=== PATIENT | female | born 1945 | race Caucasian/White ===

== ENCOUNTER 2019-04-22 14:47 | Inpatient (IN) | payer OTHER ==
[~2019-04-22] VITALS: Ht 167.6 cm; Wt 78.2 kg
[2019-04-22] MEDS ORDERED: ASPirin 81 mg TAB PO ONE (15:00)
[2019-04-22 15:48] LABS: Basophils # (auto) 0.1 10 ^3/uL (0-0.2); Eosinophils # (auto) 0.1 10 ^3/uL (0-0.8); Hemoglobin 12.2 g/dL (12.2-16.2); Mean Corpuscular Hemoglobin 26.4 pg (28.0-32.0); Red Blood Cells 4.63 10^6/uL (4.0-5.20)
[2019-04-22 15:50] LABS: Basophils % (auto) 1.2 % (0.0-2.0); Eosinophils % (auto) 1.5 % (0.0-7.0); Hematocrit 37.2 % (36.0-46.0); Lymphocytes # (auto) 1.4 10 ^3/uL (0.4-5.4); Lymphocytes % (auto) 24.1 % (10.0-50.0); Mean Corpuscular Hgb Conc. 32.8 g/dL (32.0-36.0); Mean Corpuscular Volume 80.3 fL (80.0-100.0); Monocytes # (auto) 0.3 10 ^3/uL (0-1.3); Monocytes % (auto) 5.2 % (0.0-12.0); Neutrophils # (auto) 4.1 10 ^3/uL (1.6-8.6); Nucleated Red Blood Cells % 0.1 %; Platelet Count (auto) 224 10^3/uL (140-450); Red Cell Distribution Width 17.1 % (11.8-14.3)
[2019-04-22 15:59] LABS: Albumin 3.5 g/dL (3.4-5.0); Anion Gap 7 (5-15); BUN/Creatinine Ratio 13.3; Blood Urea Nitrogen 10 mg/dL (7-18); Calcium 8.8 mg/dL (8.5-10.1); Carbon Dioxide 25 mmol/L (21-32); Chloride 108 mmol/L (98-107); GFR African American 97 mL/min; GFR Non-African American 81 mL/min; Glucose 115 mg/dL (74-106); Sodium 140 mmol/L (136-145)
[2019-04-22 16:04] LABS: Alanine Aminotransferase 16 U/L (13-56); Alkaline Phosphatase 161 U/L (45-117); Aspartate Aminotransferase 13 U/L (15-37); Bilirubin, Total 0.4 mg/dL (0.2-1.0); Total Protein 7.5 g/dL (6.4-8.2)
[2019-04-22] MEDS ORDERED: POTASSIUM EFFERVESENT TAB 25 MEQ PO ONE (16:15)
[2019-04-22 16:35] LABS: INR 0.95 (0.9-1.15); Partial Thromboplastin Time 27.6 sec (23.64-32.05)
[2019-04-22] MEDS ORDERED: ACETAMINOPHEN 500 MG TAB PO PRN (16:45)
[2019-04-22] MEDS ORDERED: NITROGLYCERIN 0.4 MG SL TAB SL PRN (16:45)
[2019-04-22] MEDS ORDERED: LACTULOSE 20Gm/30ML SOLN PO PRN (16:45)
[2019-04-22] MEDS ORDERED: METOPROLOL TARTRATE 25 MG TAB PO ONE (16:45)
[2019-04-22] MEDS ORDERED: DEXTROSE (50%) 50ML SYRG IV PRN (16:45)
[2019-04-22] MEDS ORDERED: MORPHINE SULF INJ 2 MG/ML SYRINGE 1ML IV PRN (16:45)
[2019-04-22] MEDS ORDERED: LABETALOL HCL 5 MG/ML 4ML SYRINGE IV PRN ×2 (16:45)
[2019-04-22] MEDS: SODIUM CHLORIDE 0.9% 1,000 ML IV SCH (18:02)
[2019-04-22 18:03] LABS: Urine Bacteria NONE SEEN /hpf (None Seen); Urine Blood Negative /uL (Negative); Urine Specific Gravity 1.004 (1.001-1.035); Urine WBC 1 /hpf (0 - 5)
[2019-04-22] MEDS: PROMETHAZINE HCL 25 MG/ML 1ML IV PRN (18:03)
[2019-04-22 18:22] LABS: Alcohol, Urine < 3.0 mg/dL (0-5); Amphetamine Screen, Urine NEGATIVE (NEGATIVE); Barbiturate Scree,Urine NEGATIVE (NEGATIVE); Benzodiazephine Screen, Urine NEGATIVE (NEGATIVE); Cannabinoid Screen, Urine POSITIVE (NEGATIVE); Cocaine Screen, Urine NEGATIVE (NEGATIVE); Opiate Scree,Urine NEGATIVE (NEGATIVE); Phencyclidine Screen, Urine NEGATIVE (NEGATIVE)
[2019-04-22 18:22] LABS: CRP High Sensitivity 0.16 mg/dL (< 0.3)
[2019-04-22] MEDS ORDERED: clonazePAM 0.5 MG TAB PO ONE (21:15)
[2019-04-22 22:00] VITALS: BP 167/73
[2019-04-22] MEDS: InsuLIN REG 1unit/0.01ml Soln (100units/ml) SC SCH (22:00)
[2019-04-22] MEDS ORDERED: METOPROLOL TARTRATE 25 MG TAB PO SCH (22:00)
[2019-04-22] MEDS: ACCU-CHEK COMFORT CURVE STRIP VI SCH (22:00)
[2019-04-22 22:17] VITALS: BP 167/73
[2019-04-22] MEDS ORDERED: PRIM50TA29 PO (22:33)
[2019-04-22] MEDS ORDERED: ATE50T PO (22:33)
[2019-04-22] MEDS ORDERED: LOVA40TA72 PO (22:33)
[2019-04-22] MEDS ORDERED: CLOP75TA28 PO (22:33)
[2019-04-22] MEDS ORDERED: METF-370 PO (22:33)
[2019-04-22] MEDS ORDERED: ASPI-231 PO (22:33)
[2019-04-22] MEDS: TEMAZEPAM 15 MG CAP PO PRN (22:53)
[2019-04-22] MEDS: ATORVASTATIN 20 MG TAB PO SCH (22:54)
[2019-04-23 05:00] VITALS: BP 161/82
[2019-04-23 06:10] LABS: Cholesterol 214 mg/dL (< 200)
[2019-04-23 06:12] LABS: HDL Cholesterol 119 mg/dL (40-59); LDL Cholesterol 77 mg/dL (< 100); Triglycerides 126 mg/dL (< 150)
[2019-04-23] MEDS: SODIUM CHLORIDE 0.9% 1,000 ML IV SCH (07:00)
[2019-04-23] MEDS ORDERED: LABETALOL HCL 5 MG/ML ML 20ML VIAL IV PRN (07:00)
[2019-04-23] MEDS: ACCU-CHEK COMFORT CURVE STRIP VI SCH ×4 (07:00→23:20)
[2019-04-23] MEDS: InsuLIN REG 1unit/0.01ml Soln (100units/ml) SC SCH ×4 (07:02→22:00)
[2019-04-23] MEDS: traMADol HCL 50 MG TAB PO PRN ×2 (08:51→19:29)
[2019-04-23] MEDS: PROMETHAZINE HCL 25 MG/ML 1ML IV PRN (08:52)
[2019-04-23 09:00] VITALS: BP_SYST 160; BP_SYST 161; BP_DIAS 76; BP_DIAS 77
[2019-04-23] MEDS: LABETALOL HCL 5 MG/ML ML 20ML VIAL IV PRN ×3 (09:20→17:02)
[2019-04-23 09:53] LABS: BUN/Creatinine Ratio 12.3; Calcium 8.3 mg/dL (8.5-10.1); Magnesium 2.3 mg/dL (1.6-2.6); Potassium 3.3 mmol/L (3.5-5.1)
[2019-04-23] MEDS ORDERED: ENALAPRIL MALEATE 10 MG TAB PO SCH (10:00)
[2019-04-23] MEDS: ASPirin 81 mg TAB PO SCH (10:36)
[2019-04-23] MEDS: ENOXAPARIN SOD 40 MG/0.4 ML SYRINGE SC SCH (10:36)
[2019-04-23] MEDS: ENALAPRIL MALEATE 10 MG TAB PO SCH (10:37)
[2019-04-23] MEDS: METOPROLOL TARTRATE 50 MG TAB PO SCH ×2 (10:38→22:00)
[2019-04-23] MEDS: NITROGLYCERIN 0.2MG/HR TOPICAL PATCH TD SCH (10:45)
[2019-04-23 13:00] VITALS: BP 161/76
[2019-04-23] MEDS ORDERED: POTASSIUM CHL 20 Meq TABLET PO ONE (14:00)
[2019-04-23] MEDS: clonazePAM 0.5 MG TAB PO PRN (14:01)
[2019-04-23] MEDS ORDERED: amLODIPine BESYLATE 5 MG TAB PO ONE (16:00)
[2019-04-23 17:00] VITALS: BP 152/82
[2019-04-23] MEDS ORDERED: cloNIDine HCL 0.1 MG TAB PO ONE (19:00)
[2019-04-23 22:00] VITALS: BP 128/68
[2019-04-23] MEDS: ATORVASTATIN 20 MG TAB PO SCH (23:19)
[2019-04-24] VITALS (7 sets, daily range): BP systolic 122–168; BP diastolic 57–84
[2019-04-24 06:41] LABS: Calcium 8.6 mg/dL (8.5-10.1); Potassium 3.5 mmol/L (3.5-5.1)
[2019-04-24 06:44] LABS: BUN/Creatinine Ratio 14.5
[2019-04-24] MEDS: ACCU-CHEK COMFORT CURVE STRIP VI SCH ×4 (06:45→22:13)
[2019-04-24] MEDS: InsuLIN REG 1unit/0.01ml Soln (100units/ml) SC SCH ×4 (06:46→22:00)
[2019-04-24] MEDS: clonazePAM 0.5 MG TAB PO PRN ×2 (08:27→15:44)
[2019-04-24] MEDS: ENOXAPARIN SOD 40 MG/0.4 ML SYRINGE SC SCH (09:56)
[2019-04-24] MEDS: NITROGLYCERIN 0.2MG/HR TOPICAL PATCH TD SCH (09:56)
[2019-04-24] MEDS: METOPROLOL TARTRATE 50 MG TAB PO SCH ×2 (09:57→22:13)
[2019-04-24] MEDS: ASPirin 81 mg TAB PO SCH (09:57)
[2019-04-24] MEDS: ENALAPRIL MALEATE 10 MG TAB PO SCH (09:58)
[2019-04-24] MEDS ORDERED: amLODIPine BESYLATE 5 MG TAB PO SCH (10:00)
[2019-04-24] MEDS: PROMETHAZINE HCL 25 MG/ML 1ML IV PRN (10:57)
[2019-04-24] MEDS: LABETALOL HCL 5 MG/ML ML 20ML VIAL IV PRN (11:11)
[2019-04-24] MEDS ORDERED: cloNIDine HCL 0.1 MG TAB PO PRN (11:45)
[2019-04-24] MEDS: traMADol HCL 50 MG TAB PO PRN ×2 (12:41→20:41)
[2019-04-24] MEDS ORDERED: AMLO10CA33 PO (14:33)
[2019-04-24] MEDS ORDERED: CLON1TAB10 PO (14:33)
[2019-04-24] MEDS ORDERED: OME20T PO (14:33)
[2019-04-24] MEDS: ATORVASTATIN 20 MG TAB PO SCH (22:12)
[2019-04-25 05:00] VITALS: BP 139/66
[2019-04-25] MEDS: InsuLIN REG 1unit/0.01ml Soln (100units/ml) SC SCH ×4 (06:18→22:00)
[2019-04-25] MEDS: ACCU-CHEK COMFORT CURVE STRIP VI SCH ×4 (06:18→22:52)
[2019-04-25] MEDS ORDERED: ADENOSINE 66 MG in GIVE UN-DILUTED 0 ML IV STA (08:35)
[2019-04-25 09:00] VITALS: BP 162/78
[2019-04-25 09:35] VITALS: BP 165/75
[2019-04-25] MEDS: NITROGLYCERIN 0.2MG/HR TOPICAL PATCH TD SCH (10:00)
[2019-04-25] MEDS: clonazePAM 0.5 MG TAB PO PRN ×2 (10:41→18:58)
[2019-04-25] MEDS: ASPirin 81 mg TAB PO SCH (10:49)
[2019-04-25] MEDS: METOPROLOL TARTRATE 50 MG TAB PO SCH ×2 (10:49→22:51)
[2019-04-25] MEDS: NIFEdipine ER 30 MG TAB PO SCH (10:50)
[2019-04-25] MEDS: PANTOPRAZOLE 40 MG TAB PO SCH (10:50)
[2019-04-25] MEDS: ENALAPRIL MALEATE 10 MG TAB PO SCH (10:51)
[2019-04-25] MEDS: ENOXAPARIN SOD 40 MG/0.4 ML SYRINGE SC SCH (10:53)
[2019-04-25 13:00] VITALS: BP 154/61
[2019-04-25 17:00] VITALS: BP 137/73
[2019-04-25 22:00] VITALS: BP 138/77
[2019-04-25] MEDS: traMADol HCL 50 MG TAB PO PRN (22:16)
[2019-04-25] MEDS: ATORVASTATIN 20 MG TAB PO SCH (22:51)
[2019-04-25] MEDS: TEMAZEPAM 15 MG CAP PO PRN (23:48)
[2019-04-26 05:00] VITALS: BP 135/78
[2019-04-26] MEDS: InsuLIN REG 1unit/0.01ml Soln (100units/ml) SC SCH ×4 (07:00→21:26)
[2019-04-26] MEDS: ACCU-CHEK COMFORT CURVE STRIP VI SCH ×4 (07:15→21:07)
[2019-04-26 09:00] VITALS: BP 151/72
[2019-04-26] MEDS: PANTOPRAZOLE 40 MG TAB PO SCH (09:32)
[2019-04-26] MEDS: METOPROLOL TARTRATE 50 MG TAB PO SCH ×2 (09:32→21:07)
[2019-04-26] MEDS: ASPirin 81 mg TAB PO SCH (09:32)
[2019-04-26] MEDS: NIFEdipine ER 30 MG TAB PO SCH (09:32)
[2019-04-26] MEDS: ENALAPRIL MALEATE 10 MG TAB PO SCH (09:33)
[2019-04-26] MEDS: NITROGLYCERIN 0.2MG/HR TOPICAL PATCH TD SCH (09:34)
[2019-04-26] MEDS: ENOXAPARIN SOD 40 MG/0.4 ML SYRINGE SC SCH (09:34)
[2019-04-26] MEDS: clonazePAM 0.5 MG TAB PO PRN ×2 (09:50→19:53)
[2019-04-26 13:00] VITALS: BP 142/75
[2019-04-26] MEDS: traMADol HCL 50 MG TAB PO PRN ×2 (14:40→21:13)
[2019-04-26 17:02] VITALS: BP 137/84
[2019-04-26] MEDS: ATORVASTATIN 20 MG TAB PO SCH (21:07)
[2019-04-26] MEDS: TEMAZEPAM 15 MG CAP PO PRN (21:13)
[2019-04-26 22:00] VITALS: BP 165/68
[2019-04-27 05:00] VITALS: BP 132/67
[2019-04-27 06:15] LABS: Basophils # (auto) 0.1 10 ^3/uL (0-0.2); Basophils % (auto) 1.2 % (0.0-2.0); Eosinophils # (auto) 0.2 10 ^3/uL (0-0.8); Eosinophils % (auto) 3.9 % (0.0-7.0); Hematocrit 37.5 % (36.0-46.0); Hemoglobin 12.2 g/dL (12.2-16.2); Lymphocytes # (auto) 1.6 10 ^3/uL (0.4-5.4); Lymphocytes % (auto) 33.9 % (10.0-50.0); Mean Corpuscular Hemoglobin 26.8 pg (28.0-32.0); Mean Corpuscular Hgb Conc. 32.6 g/dL (32.0-36.0); Mean Corpuscular Volume 82.2 fL (80.0-100.0); Monocytes # (auto) 0.3 10 ^3/uL (0-1.3); Monocytes % (auto) 6.8 % (0.0-12.0); Neutrophils # (auto) 2.6 10 ^3/uL (1.6-8.6); Neutrophils % (auto) 54.2 % (37.0-80.0); Nucleated Red Blood Cells % 0.2 %; Platelet Count (auto) 192 10^3/uL (140-450); Red Blood Cells 4.56 10^6/uL (4.0-5.20); Red Cell Distribution Width 17.9 % (11.8-14.3); White Blood Cell 4.7 10^3/uL (4.4-10.8)
[2019-04-27] MEDS: ACCU-CHEK COMFORT CURVE STRIP VI SCH ×2 (06:17→11:57)
[2019-04-27] MEDS: InsuLIN REG 1unit/0.01ml Soln (100units/ml) SC SCH ×2 (06:17→11:30)
[2019-04-27 06:34] LABS: Calcium 9.2 mg/dL (8.5-10.1); Magnesium 1.8 mg/dL (1.6-2.6); Potassium 3.8 mmol/L (3.5-5.1)
[2019-04-27 06:36] LABS: BUN/Creatinine Ratio 13.6
[2019-04-27 08:38] LABS: Folate (Folic Acid) 9.37 ng/mL (5.38-24)
[2019-04-27 09:06] VITALS: BP 137/84
[2019-04-27] MEDS: ASPirin 81 mg TAB PO SCH (09:56)
[2019-04-27] MEDS: NIFEdipine ER 30 MG TAB PO SCH (09:57)
[2019-04-27] MEDS: METOPROLOL TARTRATE 50 MG TAB PO SCH (09:57)
[2019-04-27] MEDS: ENALAPRIL MALEATE 10 MG TAB PO SCH (09:58)
[2019-04-27] MEDS: PANTOPRAZOLE 40 MG TAB PO SCH (09:58)
[2019-04-27] MEDS: ENOXAPARIN SOD 40 MG/0.4 ML SYRINGE SC SCH (09:59)
[2019-04-27] MEDS: traMADol HCL 50 MG TAB PO PRN (10:00)
[2019-04-27] MEDS: NITROGLYCERIN 0.2MG/HR TOPICAL PATCH TD SCH (10:00)
[2019-04-27] MEDS: clonazePAM 0.5 MG TAB PO PRN (10:00)
[2019-04-27] MEDS ORDERED: MAGNESIUM OXIDE 400 MG TAB PO ONE (10:45)
[2019-04-27] MEDS ORDERED: CYANOCOBALAMIN (B-12) 1000 MCG/1 ML VIAL SUBCUT ONE (10:45)
[2019-04-27 13:00] VITALS: BP 151/67
[2019-04-27 15:24] VITALS: BP 151/67
== END 2019-04-27 16:14 | disposition home or self-care (01) | DRG 305 ==
LOC: ER 14:47 → EDBD 14:47 → TELE 14:48 → TELE-WESTW 20:38
PROVIDERS: ADMIT Internal Medicine; ATTEND Internal Medicine
DX: I16.1 Hypertensive emergency (principal); J44.1 Chronic obstructive pulmonary disease with (acute) exacerbation; I16.0 Hypertensive urgency; R07.89 Other chest pain; E87.6 Hypokalemia; F41.9 Anxiety disorder, unspecified; E11.9 Type 2 diabetes mellitus without complications; I25.10 Atherosclerotic heart disease of native coronary artery without angina pectoris; E87.5 Hyperkalemia; I35.1 Nonrheumatic aortic (valve) insufficiency; Z90.49 Acquired absence of other specified parts of digestive tract; Z90.710 Acquired absence of both cervix and uterus
CPT/HCPCS: 36415; 70450; 71045; 78452; 80048; 80053; 80061; 80307; 81001; 82550; 82607; 82746; 82962; 83036; 83735; 84443; 84484; 85025; 85379; 85610; 85652; 85730; 86141; 93005; 93017; 93306; 93975; 96374; G0378; J0153; J1815

== ENCOUNTER → 2019-06-03 | Emergency (ER) | payer OTHER ==
[~2019-06-03] VITALS: Ht 167.6 cm; Wt 81.6 kg
[~2019-06-03] MED LIST: ACETAMINOPHEN 500 MG TAB PO ONE; AMLO10CA33 PO; ASPI-231 PO; ATE50T PO; CLON1TAB10 PO; CLOP75TA28 PO; IBUPROFEN 800 MG TAB PO ONE; IOHEXOL 350 MG/ML 100ML IJ ONE; LOVA40TA72 PO; METF-370 PO; OME20T PO; PRIM50TA29 PO; cloNIDine HCL 0.1 MG TAB PO ONE; clonazePAM 0.5 MG TAB PO ONE
[2019-06-03 12:23] LABS: Urine WBC None Seen /hpf (0 - 5)
[2019-06-03 12:37] LABS: Urine Bacteria NONE SEEN /hpf (None Seen); Urine Blood Negative /uL (Negative); Urine Mucus FEW (None Seen); Urine Specific Gravity 1.001 (1.001-1.035)
[2019-06-03 13:37] LABS: Basophils # (auto) 0.1 10 ^3/uL (0-0.2); Basophils % (auto) 1.3 % (0.0-2.0); Eosinophils # (auto) 0.1 10 ^3/uL (0-0.8); Eosinophils % (auto) 2.5 % (0.0-7.0); Hematocrit 34.3 % (36.0-46.0); Hemoglobin 11.3 g/dL (12.2-16.2); Lymphocytes # (auto) 1.3 10 ^3/uL (0.4-5.4); Mean Corpuscular Hemoglobin 27.2 pg (28.0-32.0); Mean Corpuscular Hgb Conc. 32.9 g/dL (32.0-36.0); Mean Corpuscular Volume 82.7 fL (80.0-100.0); Monocytes # (auto) 0.3 10 ^3/uL (0-1.3); Monocytes % (auto) 5.5 % (0.0-12.0); Neutrophils # (auto) 3.6 10 ^3/uL (1.6-8.6); Neutrophils % (auto) 66.7 % (37.0-80.0); Nucleated Red Blood Cells % 0.1 %; Platelet Count (auto) 231 10^3/uL (140-450); Red Blood Cells 4.15 10^6/uL (4.0-5.20); Red Cell Distribution Width 16.4 % (11.8-14.3); White Blood Cell 5.4 10^3/uL (4.4-10.8)
[2019-06-03 13:55] LABS: INR 0.97 (0.9-1.15); Partial Thromboplastin Time 26.9 sec (23.64-32.05)
[2019-06-03 13:56] LABS: Albumin 3.1 g/dL (3.4-5.0); Anion Gap 7 (5-15); BUN/Creatinine Ratio 16.2; Blood Urea Nitrogen 12 mg/dL (7-18); Calcium 8.6 mg/dL (8.5-10.1); Carbon Dioxide 25 mmol/L (21-32); Chloride 110 mmol/L (98-107); GFR African American 99 mL/min; GFR Non-African American 82 mL/min; Glucose 119 mg/dL (74-106); Potassium 3.8 mmol/L (3.5-5.1); Sodium 142 mmol/L (136-145)
[2019-06-03 14:01] LABS: Alanine Aminotransferase 16 U/L (13-56); Alkaline Phosphatase 159 U/L (45-117); Aspartate Aminotransferase 10 U/L (15-37); Bilirubin, Total 0.3 mg/dL (0.2-1.0); Total Protein 6.7 g/dL (6.4-8.2)
[2019-06-03 15:46] VITALS: BP 120/61
== END | disposition home or self-care (01) ==
LOC: EDUNIT# 11:17 → EDBD 11:33 → ER 11:33
DX: I16.0 Hypertensive urgency (principal); F41.9 Anxiety disorder, unspecified; R79.89 Other specified abnormal findings of blood chemistry; I25.10 Atherosclerotic heart disease of native coronary artery without angina pectoris; J44.9 Chronic obstructive pulmonary disease, unspecified; E11.9 Type 2 diabetes mellitus without complications; E78.5 Hyperlipidemia, unspecified; I10 Essential (primary) hypertension
CPT/HCPCS: 36415; 70450; 71045; 71275; 80053; 81001; 83735; 83880; 84443; 84484; 85025; 85379; 85610; 85730; 93005; 99285; Q9967

== ENCOUNTER 2019-07-02 16:33 | Inpatient (IN) | payer OTHER ==
[~2019-07-02] VITALS: Ht 167.6 cm; Wt 86.1 kg
[~2019-07-02 16:33] MED LIST changes: -ACETAMINOPHEN 500 MG TAB PO ONE; -IBUPROFEN 800 MG TAB PO ONE; -IOHEXOL 350 MG/ML 100ML IJ ONE; -cloNIDine HCL 0.1 MG TAB PO ONE; -clonazePAM 0.5 MG TAB PO ONE
[2019-07-02 17:19] LABS: Basophils # (auto) 0.1 10 ^3/uL (0-0.2); Basophils % (auto) 0.8 % (0.0-2.0); Eosinophils # (auto) 0.1 10 ^3/uL (0-0.8); Eosinophils % (auto) 1.1 % (0.0-7.0); Hematocrit 38.4 % (36.0-46.0); Hemoglobin 12.7 g/dL (12.2-16.2); Lymphocytes # (auto) 1.5 10 ^3/uL (0.4-5.4); Lymphocytes % (auto) 21.8 % (10.0-50.0); Mean Corpuscular Hemoglobin 27.6 pg (28.0-32.0); Mean Corpuscular Hgb Conc. 33.1 g/dL (32.0-36.0); Mean Corpuscular Volume 83.4 fL (80.0-100.0); Monocytes # (auto) 0.4 10 ^3/uL (0-1.3); Monocytes % (auto) 5.6 % (0.0-12.0); Neutrophils # (auto) 4.9 10 ^3/uL (1.6-8.6); Neutrophils % (auto) 70.7 % (37.0-80.0); Nucleated Red Blood Cells % 0.1 %; Platelet Count (auto) 207 10^3/uL (140-450); Red Cell Distribution Width 15.5 % (11.8-14.3)
[2019-07-02 17:29] LABS: Alanine Aminotransferase 18 U/L (13-56); Albumin 3.5 g/dL (3.4-5.0); Anion Gap 7 (5-15); Aspartate Aminotransferase 14 U/L (15-37); BUN/Creatinine Ratio 11.6; Blood Urea Nitrogen 11 mg/dL (7-18); Calcium 9.2 mg/dL (8.5-10.1); Carbon Dioxide 26 mmol/L (21-32); Chloride 106 mmol/L (98-107); GFR African American 74 mL/min; GFR Non-African American 61 mL/min; Glucose 183 mg/dL (74-106); Magnesium 1.7 mg/dL (1.6-2.6); Potassium 3.6 mmol/L (3.5-5.1); Sodium 139 mmol/L (136-145)
[2019-07-02 17:35] LABS: INR 0.97 (0.9-1.15); Partial Thromboplastin Time 26.6 sec (23.64-32.05)
[2019-07-02 17:36] LABS: Alkaline Phosphatase 123 U/L (45-117); Bilirubin, Total 0.4 mg/dL (0.2-1.0); Total Protein 7.6 g/dL (6.4-8.2)
[2019-07-02] MEDS ORDERED: ACETAMINOPHEN 325 MG TAB PO ONE ×2 (17:45→22:15)
[2019-07-02] MEDS ORDERED: cloNIDine HCL 0.1 MG TAB ONE (18:50)
[2019-07-02] MEDS ORDERED: cloNIDine HCL 0.1 MG TAB PO ONE (19:00)
[2019-07-02] MEDS ORDERED: SODIUM CHLORIDE 0.9% 1,000 ML IV SCH (23:07)
[2019-07-02] MEDS ORDERED: DOCUSATE SOD 100 MG CAP PO PRN (23:15)
[2019-07-02] MEDS ORDERED: MORPHINE SULF INJ 2 MG/ML SYRINGE 1ML IV PRN (23:15)
[2019-07-02] MEDS ORDERED: DEXTROSE (50%) 50ML SYRG IV PRN (23:15)
[2019-07-02] MEDS ORDERED: HYDROcodone-ACET 5/325MG TAB PO PRN (23:15)
[2019-07-02] MEDS ORDERED: ACETAMINOPHEN 325 MG TAB PO PRN (23:15)
[2019-07-02] MEDS ORDERED: ALBUTEROL SULF 2.5 MG/0.5ML(0.5%) NEB SOLN NEB PRN (23:15)
[2019-07-02] MEDS ORDERED: ONDANSETRON HCL 4 MG/2 ML VIAL IV PRN (23:15)
[2019-07-02] MEDS ORDERED: IPRATROPIUM BROM 0.5 MG/2.5ML INH SOL NEB PRN (23:15)
[2019-07-02] MEDS ORDERED: ACETAMINOPHEN 500 MG TAB PO PRN (23:15)
[2019-07-03] MEDS: SODIUM CHLORIDE 0.9% 1,000 ML IV SCH ×2 (00:30→09:09)
[2019-07-03] MEDS: DOXYCYCLINE 100 MG TAB/CAP PO SCH ×3 (00:30→21:13)
[2019-07-03] MEDS: InsuLIN REG 1unit/0.01ml Soln (100units/ml) SC SCH ×7 (01:00→23:43)
--- NOTE | 2019-07-03 01:00 | NUR ---
OPENING NOTE RECEIVED PATIENT FROM ER. NO SBAR OR REPORT RECEIVED. CARMINE'S BP AT THIS TIME IN THE 180S. NO PRIOR BP RECORDED PRIOR TO TRANSFER. WILL MEDICATE WITH PRN AT THIS TIME. PATIENT SHOWING NO SIGN OF DISTRESS, SHORTNESS OF BREATH, BUT PATIENT DOES STATE PAIN FROM HEADACHE. PATIENT WILL BE MEDICATED WHEN AVAILABLE. PATIENT EDUCATED ON PLAN OF CARE FOR THE NIGHT AND PATIENT VERBALIZED UNDERSTANDING. WILL CONTINUE TO MONITOR.
--- NOTE | 2019-07-03 01:10 | NUR ---
PATIENT COMPLAINING OF HEADACHE AT 09/25. PATIENT GIVEN NORCO AT THIS TIME PER PATIENT'S REQUEST. WILL CONTINUE TO MONITOR.
[2019-07-03 01:13] VITALS: BP 181/162
[2019-07-03] MEDS: cloNIDine HCL 0.1 MG TAB PO PRN ×2 (01:16→06:05)
[2019-07-03] MEDS: ACCU-CHEK COMFORT CURVE STRIP VI SCH ×7 (04:00→23:43)
[2019-07-03] MEDS: clonazePAM 0.5 MG TAB PO SCH ×4 (05:38→21:12)
[2019-07-03 05:39] LABS: Basophils # (auto) 0 10 ^3/uL (0-0.2); Basophils % (auto) 0.7 % (0.0-2.0); Eosinophils # (auto) 0.1 10 ^3/uL (0-0.8); Eosinophils % (auto) 1.7 % (0.0-7.0); Hematocrit 37.6 % (36.0-46.0); Hemoglobin 12.2 g/dL (12.2-16.2); Lymphocytes # (auto) 1.7 10 ^3/uL (0.4-5.4); Lymphocytes % (auto) 26.9 % (10.0-50.0); Mean Corpuscular Hemoglobin 27.1 pg (28.0-32.0); Mean Corpuscular Hgb Conc. 32.5 g/dL (32.0-36.0); Mean Corpuscular Volume 83.4 fL (80.0-100.0); Monocytes # (auto) 0.3 10 ^3/uL (0-1.3); Monocytes % (auto) 5.1 % (0.0-12.0); Neutrophils % (auto) 65.6 % (37.0-80.0); Nucleated Red Blood Cells % 0.1 %; Platelet Count (auto) 186 10^3/uL (140-450); Red Blood Cells 4.51 10^6/uL (4.0-5.20); Red Cell Distribution Width 15.4 % (11.8-14.3); White Blood Cell 6.1 10^3/uL (4.4-10.8)
[2019-07-03 06:00] VITALS: BP 178/81
[2019-07-03] MEDS ORDERED: ALBUTEROL SULF HFA 90MCG INH 200DOSE IN SCH ×2 (06:00)
--- NOTE | 2019-07-03 06:06 | NUR ---
HOSPITALIST PAGED PATIENT'S BP ELEVATED AGAIN AT 178/81. CATAPRES SCHEDULED TID. INFORMED HOSPITALIST. ORDERS FOR .1 CATAPRES NOW AND SWITCH ORDER TO .2 TID. ORDERS CARRIED OUT AT THIS TIME.
[2019-07-03 06:08] LABS: Albumin 3.2 g/dL (3.4-5.0); Potassium 3.4 mmol/L (3.5-5.1)
[2019-07-03 06:15] LABS: BUN/Creatinine Ratio 13.3; Bilirubin, Total 0.5 mg/dL (0.2-1.0); Calcium 8.6 mg/dL (8.5-10.1); Total Protein 6.9 g/dL (6.4-8.2)
[2019-07-03] MEDS ORDERED: cloNIDine HCL 0.1 MG TAB PO PRN (07:00)
--- NOTE | 2019-07-03 07:45 | NUR ---
OPENING SHIFT NOTE: PATIENT RESTING IN BED. RESPIRATIONS EVEN AND UNLABORED. PATIENT SLEEPING, BUT EASILY AROUSABLE. A&OX4. EXTREMITES WARM TO TOUCH. DENIES ANY DIZZINESS, SOB, OR CHEST PAIN AT THIS TIME. PATIENT SAT-UP AND ASPIRATION AND FALL PRECAUTIONS IN PLACE. BED IN LOWEST LOCKED POSITION WITH CALL LIGHT WITHIN REACH. WILL CONTINUE CARE.
--- NOTE | 2019-07-03 07:53 | NUR ---
REGARDING SINUS BRADYCARDIA: paged distribution a class lineman hospitalist for new onset SINUS JEFF low 40's.
[2019-07-03] MEDS ORDERED: hydrALAZINE HCL 20 MG/ML VL IV PRN (08:00)
[2019-07-03] MEDS ORDERED: OMEPRAZOLE 20MG/10ML ORAL SUSP PO SCH (08:00)
--- NOTE | 2019-07-03 08:03 | NUR ---
SPOKE TO Christin EDUARDO. INFORMED OF PATIENT STATUS. INCLUDING CURRENT VITALS. RECEIVED NEW ORDERS. WILL FOLLOW THROUGH.
[2019-07-03] MEDS ORDERED: ATORVASTATIN 20 MG TAB PO ONE (08:15)
[2019-07-03 09:00] VITALS: BP 138/64
[2019-07-03] MEDS ORDERED: ASCORBIC ACID 1,000 MG TAB PO SCH (10:00)
[2019-07-03] MEDS ORDERED: CHOLECALCIFEROL (VITD3) 1,000UNIT=25mCg TAB PO SCH (10:00)
[2019-07-03] MEDS ORDERED: amLODIPine BESYLATE 5 MG TAB PO SCH (10:00)
[2019-07-03] MEDS ORDERED: ZINC SULFATE 220mg CAP or TAB PO SCH (10:00)
[2019-07-03] MEDS ORDERED: ATORVASTATIN 20 MG TAB PO SCH (10:00)
[2019-07-03] MEDS ORDERED: ATENOLOL 50 MG TAB PO SCH (10:00)
[2019-07-03] MEDS: ASPirin-EC 81 mg tab PO SCH (10:11)
[2019-07-03] MEDS: CLOPIDOGREL BISULFATE 75 MG TAB PO SCH (10:11)
[2019-07-03] MEDS: ENOXAPARIN SOD 40 MG/0.4 ML SYRINGE SC SCH (10:12)
--- NOTE | 2019-07-03 10:35 | NUR ---
REGARDING SEIZURE MEDICATION: INFORMED Christin SUNSHINE OF PATIENT STATUS INFORMED PATIENT HAS HISTORY OF SEIZURES AND TAKES PRIMODINE 50MG PO DAILY. NO NEW ORDERS RECEIVED.
--- NOTE | 2019-07-03 10:40 | NUR ---
GERARDO SANDERSON REGARDING DECREASED HEART RATE. AWAITING CALL BACK.
--- NOTE | 2019-07-03 11:11 | NUR ---
Christin CALLOWAY AT BEDSIDE. INFORMED OF PATIENT STATUS INCLUDING VITAL SIGNS. NEW ORDERS RECEIVED. SEE EMR.
--- NOTE | 2019-07-03 11:46 | NUR ---
PATIENT TRANSFERRED TO ROOM 218A. PATIENT IN NO S/S OF DISTRESS NOTED AT THIS TIME. TELE MONITOR IN PLACE. TRANSFERRED [facility] ALL BELONGINGS. REPORT GIVEN TO JOSH HERMOSILLO.
--- NOTE | 2019-07-03 12:08 | NUR ---
Pt transfered to floor from COVID unit, no distress noted. Pt reports no pain at this time. P oriented to unit and call light, seizure precautions in place. side rails up x2, bed rails padded, bed in lowest locked position. Vitals: 98.5, HR 48, RR 18, 02 94 % on RA, BP 149/67. Will continue to monitor q 1 hr and PRN.
[2019-07-03 12:30] VITALS: BP 149/67
--- NOTE | 2019-07-03 13:05 | NUR ---
DR LAU CAME AND SAW PATIENT, NOTIFIED HIM OF PATIENT 11/25 PAIN IN LEFT LEG, AWARE, NEW ORDERS FOR ULTRASOUND OF LEG AND TORADOL. Addendum: 07/03/19 at 1307 by DHAVAL CLARK RN WRONG PATIENT
[2019-07-03] MEDS ORDERED: amLODIPine BESYLATE 5 MG TAB PO ONE (15:45)
[2019-07-03] MEDS ORDERED: BENAZEPRIL HCL 10 MG TAB PO ONE (15:45)
[2019-07-03 17:00] VITALS: BP 141/70
--- NOTE | 2019-07-03 19:30 | NUR ---
opening note pt is A&Ox4. respirations are even and non labored on room air. pt denies pain or discomfort at this time. POC discussed. bed in low locked position, call light within reach.
[2019-07-03] MEDS ORDERED: PRAMIPEXOLE DIHYDROCHLORIDE MO 0.25 MG TAB PO SCH (21:00)
[2019-07-03 22:00] VITALS: BP 149/73
[2019-07-03 23:19] LABS: % Iron Saturation 14.1 % (15-50)
[2019-07-04] MEDS: InsuLIN REG 1unit/0.01ml Soln (100units/ml) SC SCH ×4 (03:46→16:00)
[2019-07-04] MEDS: ACCU-CHEK COMFORT CURVE STRIP VI SCH ×4 (03:46→16:00)
[2019-07-04 05:58] VITALS: BP 162/74
[2019-07-04] MEDS: clonazePAM 0.5 MG TAB PO SCH (06:17)
[2019-07-04] MEDS ORDERED: PANTOPRAZOLE 40 MG TAB PO SCH (07:00)
--- NOTE | 2019-07-04 07:17 | NUR ---
closing note pt resting in semi fowlers with HOB at 30 degrees. no s/s of pain or discomfort at this time. respirations even and nonlabored on room air. bed in low locked position, call light within reach. Endorsed care to JOSH Vasquez.
--- NOTE | 2019-07-04 07:30 | NUR ---
Opening Shift Note Assumed care of patient, awake and alert. No S/S of distress/SOB or pain. Instructed on POC and to call for assist PRN, and patient verbalized understanding. Will continue to monitor for changes Q1hr and PRN.
[2019-07-04 09:00] VITALS: BP 160/75
[2019-07-04] MEDS: DOXYCYCLINE 100 MG TAB/CAP PO SCH (09:13)
[2019-07-04] MEDS: CLOPIDOGREL BISULFATE 75 MG TAB PO SCH (09:13)
[2019-07-04] MEDS: ASPirin-EC 81 mg tab PO SCH (09:14)
[2019-07-04] MEDS: ENOXAPARIN SOD 40 MG/0.4 ML SYRINGE SC SCH (09:15)
[2019-07-04] MEDS ORDERED: amLODIPine BESYLATE 5 MG TAB PO SCH (10:00)
[2019-07-04] MEDS ORDERED: BENAZEPRIL HCL 10 MG TAB PO SCH (10:00)
[2019-07-04 13:00] VITALS: BP 159/75
[2019-07-04] MEDS ORDERED: CLON1TAB10 PO (14:32)
[2019-07-04] MEDS ORDERED: PRAM0.252 PO (14:32)
--- NOTE | 2019-07-04 18:05 | NUR ---
Patient discharged; taken to vehicle via wheelchair, along with all personal belongings, no distress noted at time of departure.
[2019-07-04] MEDS ORDERED: clonazePAM 0.5 MG TAB PO PRN (19:00)
[2019-07-04] MEDS ORDERED: ATORVASTATIN 20 MG TAB PO SCH (22:00)
== END 2019-07-04 17:56 | disposition home or self-care (01) | DRG 77 ==
LOC: EDUNIT# 16:33 → ER 16:33 → EDBD 16:33 → TELE 16:34 → TELE-EAST 07-03 01:23 → TELE-CENTR 07-03 11:47
PROVIDERS: ADMIT Hospitalist; ATTEND Internal Medicine Nephrology
DX: I67.4 Hypertensive encephalopathy (principal); I63.81 Other cerebral infarction due to occlusion or stenosis of small artery; I16.1 Hypertensive emergency; I35.1 Nonrheumatic aortic (valve) insufficiency; E87.6 Hypokalemia; I10 Essential (primary) hypertension; R51 Headache; R43.8 Other disturbances of smell and taste; R00.1 Bradycardia, unspecified; J44.9 Chronic obstructive pulmonary disease, unspecified; E78.5 Hyperlipidemia, unspecified; I25.10 Atherosclerotic heart disease of native coronary artery without angina pectoris; F41.9 Anxiety disorder, unspecified; Z03.818 Encounter for observation for suspected exposure to other biological agents ruled out; G25.81 Restless legs syndrome; E11.65 Type 2 diabetes mellitus with hyperglycemia; F17.200 Nicotine dependence, unspecified, uncomplicated; Z80.0 Family history of malignant neoplasm of digestive organs; Z90.710 Acquired absence of both cervix and uterus; Z95.5 Presence of coronary angioplasty implant and graft; Z82.5 Family history of asthma and other chronic lower respiratory diseases; Z82.49 Family history of ischemic heart disease and other diseases of the circulatory system
CPT/HCPCS: 36415; 70450; 71045; 80053; 80061; 82728; 82962; 83036; 83540; 83550; 83605; 83735; 84436; 84443; 84484; 85025; 85610; 85652; 85730; 87040; 87070; 87804; 87880; 93005; G0378; J1815

== ENCOUNTER 2019-11-19 20:55 | Emergency (ER) | payer OTHER, MEDICAID ==
[~2019-11-19] VITALS: Ht 167.6 cm; Wt 82.6 kg
[~2019-11-19 20:55] MED LIST changes: -ATE50T PO; -CLON1TAB10 PO; +PRAM0.252 PO
[2019-11-19 21:08] VITALS: BP 166/60
[2019-11-19 22:15] LABS: Urine Bacteria FEW /hpf (None Seen); Urine Blood Negative /uL (Negative); Urine Specific Gravity 1.006 (1.001-1.035); Urine WBC 2 /hpf (0 - 5)
[2019-11-19 22:28] LABS: Basophils # (auto) 0.1 10 ^3/uL (0-0.2); Basophils % (auto) 0.7 % (0.0-2.0); Eosinophils # (auto) 0.2 10 ^3/uL (0-0.8); Eosinophils % (auto) 2.8 % (0.0-7.0); Hematocrit 35.4 % (36.0-46.0); Hemoglobin 11.6 g/dL (12.2-16.2); Lymphocytes # (auto) 2.3 10 ^3/uL (0.4-5.4); Lymphocytes % (auto) 25.9 % (10.0-50.0); Mean Corpuscular Hemoglobin 28.6 pg (28.0-32.0); Mean Corpuscular Hgb Conc. 32.8 g/dL (32.0-36.0); Mean Corpuscular Volume 87.3 fL (80.0-100.0); Monocytes # (auto) 0.5 10 ^3/uL (0-1.3); Monocytes % (auto) 5.5 % (0.0-12.0); Neutrophils # (auto) 5.7 10 ^3/uL (1.6-8.6); Neutrophils % (auto) 65.1 % (37.0-80.0); Nucleated Red Blood Cells % 0.1 %; Platelet Count (auto) 265 10^3/uL (140-450); Red Blood Cells 4.06 10^6/uL (4.0-5.20); Red Cell Distribution Width 16.3 % (11.8-14.3); White Blood Cell 8.8 10^3/uL (4.4-10.8)
[2019-11-19 22:46] LABS: Albumin 3.9 g/dL (3.4-5.0); Amylase 44 U/L (25-115); Anion Gap 5 (5-15); Blood Urea Nitrogen 12 mg/dL (7-18); Calcium 9.2 mg/dL (8.5-10.1); Carbon Dioxide 26 mmol/L (21-32); Chloride 108 mmol/L (98-107); Glucose 123 mg/dL (74-106); Lipase 194 U/L (73-393); Potassium 4.1 mmol/L (3.5-5.1); Sodium 139 mmol/L (136-145)
[2019-11-19 22:52] LABS: Alanine Aminotransferase 25 U/L (13-56); Alkaline Phosphatase 123 U/L (45-117); Aspartate Aminotransferase 14 U/L (15-37); BUN/Creatinine Ratio 11.3; Bilirubin, Total 0.3 mg/dL (0.2-1.0); GFR African American 65 mL/min; GFR Non-African American 54 mL/min; Total Protein 7.5 g/dL (6.4-8.2)
[2019-11-21] MEDS ORDERED: ATEN50TA PO (19:56)
[2019-11-21] MEDS ORDERED: PROP60CA34 PO (19:56)
[2019-11-21] MEDS ORDERED: ROSU10TA16 PO (19:56)
[2019-11-21] MEDS ORDERED: MULT-927 PO (19:57)
[2019-11-21] MEDS ORDERED: B-COTAB56 PO (19:57)
== END 2019-11-20 00:45 | disposition left against medical advice (07) ==
LOC: ER 20:56
DX: R10.9 Unspecified abdominal pain (principal); Z53.21 Procedure and treatment not carried out due to patient leaving prior to being seen by health care provider
CPT/HCPCS: 36415; 80053; 81001; 82150; 83690; 84484; 85025; 93005

== ENCOUNTER 2019-11-21 10:59 | Inpatient (IN) | payer OTHER, MEDICAID ==
[~2019-11-21] VITALS: Ht 167.6 cm; Wt 91.8 kg
[2019-11-21] MEDS ORDERED: SODIUM CHLORIDE 0.9% 1,000 ML IV ONE (11:15)
[2019-11-21] MEDS ORDERED: cloNIDine HCL 0.1 MG TAB PO ONE (11:15)
[2019-11-21 11:40] LABS: Basophils # (auto) 0 10 ^3/uL (0-0.2); Basophils % (auto) 0.7 % (0.0-2.0); Eosinophils # (auto) 0.1 10 ^3/uL (0-0.8); Hematocrit 35.8 % (36.0-46.0); Hemoglobin 11.8 g/dL (12.2-16.2); Lymphocytes # (auto) 1.5 10 ^3/uL (0.4-5.4); Mean Corpuscular Hemoglobin 28.4 pg (28.0-32.0); Monocytes # (auto) 0.3 10 ^3/uL (0-1.3); Monocytes % (auto) 4.1 % (0.0-12.0); Neutrophils # (auto) 4.9 10 ^3/uL (1.6-8.6); Neutrophils % (auto) 71.2 % (37.0-80.0); Nucleated Red Blood Cells % 0.2 %; Platelet Count (auto) 275 10^3/uL (140-450); Red Blood Cells 4.16 10^6/uL (4.0-5.20); Red Cell Distribution Width 16.1 % (11.8-14.3); White Blood Cell 6.9 10^3/uL (4.4-10.8)
[2019-11-21 11:55] LABS: Albumin 3.6 g/dL (3.4-5.0); Anion Gap 5 (5-15); Blood Urea Nitrogen 13 mg/dL (7-18); Calcium 9.4 mg/dL (8.5-10.1); Carbon Dioxide 27 mmol/L (21-32); Chloride 108 mmol/L (98-107); Glucose 170 mg/dL (74-106); Lipase 163 U/L (73-393); Sodium 140 mmol/L (136-145)
[2019-11-21 12:02] LABS: Alanine Aminotransferase 19 U/L (13-56); Alkaline Phosphatase 112 U/L (45-117); Aspartate Aminotransferase 12 U/L (15-37); BUN/Creatinine Ratio 12.9; Bilirubin, Total 0.3 mg/dL (0.2-1.0); GFR African American 69 mL/min; GFR Non-African American 57 mL/min; Total Protein 7.1 g/dL (6.4-8.2)
[2019-11-21] MEDS ORDERED: ONDANSETRON HCL 4 MG/2 ML VIAL IV ONE (14:30)
[2019-11-21] MEDS ORDERED: PIPERACILLIN-TAZOB 3.375GM 100 ML IV ONE (14:30)
[2019-11-21] MEDS ORDERED: MORPHINE SULFATE 4 MG/ML SYR/VIAL IV ONE (14:30)
[2019-11-21] MEDS ORDERED: NITROGLYCERIN 0.4 MG SL TAB SL PRN (15:30)
[2019-11-21] MEDS ORDERED: DEXTROSE (50%) 50ML SYRG IV PRN (15:30)
[2019-11-21] MEDS ORDERED: MORPHINE SULF INJ 2 MG/ML SYRINGE 1ML IV PRN ×2 (15:30)
[2019-11-21] MEDS ORDERED: HYDROmorphone HCL 2 MG/ML VL IV PRN (16:00)
[2019-11-21] MEDS ORDERED: PROMETHAZINE HCL 25 MG/ML 1ML IV ONE (17:00)
[2019-11-21] MEDS: ACCU-CHEK COMFORT CURVE STRIP VI SCH ×2 (17:47→21:31)
[2019-11-21] MEDS: InsuLIN REG 1unit/0.01ml Soln (100units/ml) SC SCH ×2 (17:50→21:32)
--- NOTE | 2019-11-21 18:21 | NUR ---
Telemetry admit from ER MELANIERADHA admitted to Telemetry unit after SBAR received. Patient oriented to YVONNE MCKNIGHT, RN primary RN, unit, room, bed, and unit policies regarding patient care and visiting hours. Patient now on continuous telemetry monitoring, reading on arrival to unit is Sinus Bradycardia HR 56. Patient encouraged to call if they need something. All questions and concerns addressed, patient verbalized understanding. Physical assessment performed at this time, will endorse admission questionnaire to NOC nurse.
--- NOTE | 2019-11-21 19:25 | NUR ---
OPENING NOTE SHIFT: Assumed care of patient from Bailey MORENO, patient is ALOCx4, Currently on 1L NC with no S/S of distress or SOB noted at this time. No pain at this time. Ambulatory with assist bed alarm is on and patient is instructed to call for assist when needed. Bed in lowest position, locked, side rails x2. Call light within reach. Will continue to monitor PRN.
[2019-11-21] MEDS ORDERED: PROP60CA34 PO (19:56)
[2019-11-21] MEDS ORDERED: ATEN50TA PO (19:56)
[2019-11-21] MEDS ORDERED: ROSU10TA16 PO (19:56)
[2019-11-21] MEDS ORDERED: MULT-927 PO (19:57)
[2019-11-21] MEDS ORDERED: B-COTAB56 PO (19:57)
[2019-11-21 22:00] VITALS: BP 106/50
[2019-11-21] MEDS: MORPHINE SULFATE 4 MG/ML SYR/VIAL IV PRN (23:14)
--- NOTE | 2019-11-22 04:29 | NUR ---
BLADDER SCAN Patient complained of the need to void but not able to. Upon palpation bladder was not distended, Bladder scan showed 71ml of urine in bladder. Patient was assisted to the bathroom and was able to void. UA sent to the lab. Will continue to encourage fluids and monitor.
[2019-11-22 05:00] VITALS: BP 143/67
[2019-11-22 05:41] LABS: Urine Bacteria FEW /hpf (None Seen); Urine Blood Negative /uL (Negative); Urine WBC 2 /hpf (0 - 5)
[2019-11-22] MEDS: ACCU-CHEK COMFORT CURVE STRIP VI SCH ×4 (06:37→21:50)
[2019-11-22] MEDS: InsuLIN REG 1unit/0.01ml Soln (100units/ml) SC SCH ×4 (06:38→21:57)
--- NOTE | 2019-11-22 07:20 | NUR ---
CARE ENDORSED TO DAY SHIFT RN
[2019-11-22 09:00] VITALS: BP 154/68
[2019-11-22] MEDS: MORPHINE SULFATE 4 MG/ML SYR/VIAL IV PRN ×2 (09:38→19:46)
[2019-11-22] MEDS: ASPirin-EC 81 mg tab PO SCH (09:39)
[2019-11-22] MEDS ORDERED: CLOPIDOGREL BISULFATE 75 MG TAB PO SCH (10:00)
[2019-11-22] MEDS ORDERED: PANTOPRAZOLE 40 MG/10 ML VIAL INJ IV SCH (10:00)
[2019-11-22] MEDS ORDERED: hydrALAZINE HCL 10 MG TAB PO ONE (11:15)
[2019-11-22] MEDS: SUCRALFATE 1 GM/10 ML ORAL SUSP PO SCH ×3 (11:30→21:57)
[2019-11-22] MEDS ORDERED: GADOTERIDOL 279.3mg/mL 20ml Vial IV ONE (11:38)
--- NOTE | 2019-11-22 11:40 | NUR ---
Patient down to Radiology Patient medicated with 0.5 mg Ativan IV at this time for anxiety as patient communicates she is claustrophobic and she needs to get a MRI done at this time. No distress noted upon departure.
[2019-11-22] MEDS: LORazepam 2MG/ML-1ML VIAL IV PRN (11:41)
[2019-11-22 13:00] VITALS: BP 187/69
[2019-11-22 13:30] LABS: INR 0.93 (0.9-1.15)
[2019-11-22] MEDS: SOD CHL 0.9%/ KCL 20MEQ 1,000 ML IV SCH (14:16)
--- NOTE | 2019-11-22 16:00 | NUR ---
Called Pharmacy to reconcile medications [place] [address] [facility] [place], [address] at [phone]. Medications reviewed and entered in system at this time.
[2019-11-22 17:00] VITALS: BP 150/67
--- NOTE | 2019-11-22 18:40 | NUR ---
Stomach distress Patient complaining of stomach distress. Patient denies pain but does feel nauseous and cramping. Patient instructed she has Zofran and Levsin available. Patient requesting Levsin at this time. Will medicate per MD orders and continue care.
[2019-11-22] MEDS: HYOSCYAMINE SULF 0.125 MG ODT TAB PO PRN (18:42)
--- NOTE | 2019-11-22 19:20 | NUR ---
OPENING NOTE SHIFT: Assumed care of patient from Bailey MORENO, patient is ALOCx4, Currently on RA with no S/S of distress or SOB noted at this time. No pain at this time. Ambulatory without assist patient is instructed to call for assist when needed. Bed in lowest position, locked, side rails x2. Call light within reach. Will continue to monitor PRN.
--- NOTE | 2019-11-22 20:30 | NUR ---
PAGED HOSPITALIST Patient requested medication to help her sleep, Received order for Temazepam 15mg one time dose. Will carry out order.
[2019-11-22] MEDS: PANTOPRAZOLE 40 MG/10 ML VIAL INJ IV SCH (21:50)
[2019-11-22 22:00] VITALS: BP 190/81
[2019-11-22] MEDS ORDERED: TEMAZEPAM 15 MG CAP PO ONE (22:00)
--- NOTE | 2019-11-22 22:26 | NUR ---
PAGED HOSPITALIST Patient BP is 176/85 HR 66, patient has no PRN BP meds, will await call back.
--- NOTE | 2019-11-22 22:53 | NUR ---
CALL BACK Received orders from Hospitalist Jai, give 10mg Labetalol Iv Push x1. Order verified and read back. Will carry out order.
[2019-11-22] MEDS ORDERED: LABETALOL HCL 5 MG/ML 4ML SYRINGE IV ONE (23:00)
[2019-11-22 23:07] VITALS: BP 176/83
--- NOTE | 2019-11-23 02:45 | NUR ---
PAGED HOSPITALIST After reassessing patients blood pressure from the previous one time dose of Labetalol, BP is now 167/74 HR 58. Received new orders for Clonidine 0.1mg Q6 PRN, verified and read back. Will carry out new orders.
[2019-11-23] MEDS: cloNIDine HCL 0.1 MG TAB PO PRN ×2 (03:23→09:12)
[2019-11-23 05:30] VITALS: BP 157/86
[2019-11-23] MEDS: HYOSCYAMINE SULF 0.125 MG ODT TAB PO PRN (05:54)
[2019-11-23] MEDS: SUCRALFATE 1 GM/10 ML ORAL SUSP PO SCH ×5 (06:29→21:38)
[2019-11-23] MEDS: InsuLIN REG 1unit/0.01ml Soln (100units/ml) SC SCH ×4 (06:30→21:27)
[2019-11-23] MEDS: ACCU-CHEK COMFORT CURVE STRIP VI SCH ×4 (06:30→21:29)
[2019-11-23] MEDS: MORPHINE SULFATE 4 MG/ML SYR/VIAL IV PRN ×2 (08:06→19:56)
[2019-11-23] MEDS: ONDANSETRON HCL 4 MG/2 ML VIAL IV PRN (08:06)
[2019-11-23 09:00] VITALS: BP 160/84
[2019-11-23] MEDS: ASPirin-EC 81 mg tab PO SCH (09:12)
[2019-11-23] MEDS: PANTOPRAZOLE 40 MG/10 ML VIAL INJ IV SCH ×2 (09:13→21:28)
--- NOTE | 2019-11-23 09:40 | NUR ---
Dr. Shine / GI at bed side to see pt, doctor discussed the plan of care with pt.
--- NOTE | 2019-11-23 10:00 | NUR ---
Dr. Gomez at bed side to see pt, doctor discussed the plan of care with pt.
--- NOTE | 2019-11-23 10:10 | NUR ---
Pt taken to radiology for CT chest.
[2019-11-23] MEDS: SOD CHL 0.9%/ KCL 20MEQ 1,000 ML IV SCH ×3 (11:45→20:00)
[2019-11-23] MEDS ORDERED: ATENOLOL 50 MG TAB PO ONE (12:00)
[2019-11-23] MEDS: SIMETHICONE 40 MG/0.6 ML ORAL DROP PO SCH ×3 (12:46→21:29)
[2019-11-23 13:00] VITALS: BP 190/75
[2019-11-23] MEDS: PROPRANOLOL HCL 20 MG TAB PO SCH (14:15)
[2019-11-23] MEDS: amLODIPine BESYLATE 5 MG TAB PO SCH (14:16)
[2019-11-23 17:00] VITALS: BP 157/75
[2019-11-23] MEDS: ATORVASTATIN 20 MG TAB PO SCH (21:28)
[2019-11-23] MEDS: ZOLPIDEM TARTRATE 5 MG TAB PO PRN (21:42)
[2019-11-23] MEDS ORDERED: PROPRANOLOL HCL 20 MG TAB PO SCH (22:00)
[2019-11-23 22:06] VITALS: BP 158/77
[2019-11-24] MEDS: MORPHINE SULFATE 4 MG/ML SYR/VIAL IV PRN ×2 (04:53→19:45)
[2019-11-24] MEDS: ONDANSETRON HCL 4 MG/2 ML VIAL IV PRN ×2 (04:53→19:45)
[2019-11-24 05:08] VITALS: BP 174/98
[2019-11-24] MEDS: cloNIDine HCL 0.1 MG TAB PO PRN ×2 (05:08→21:38)
[2019-11-24] MEDS: ACCU-CHEK COMFORT CURVE STRIP VI SCH ×4 (05:29→21:37)
[2019-11-24] MEDS: InsuLIN REG 1unit/0.01ml Soln (100units/ml) SC SCH ×4 (05:29→21:37)
[2019-11-24] MEDS: SUCRALFATE 1 GM/10 ML ORAL SUSP PO SCH ×4 (05:30→21:36)
[2019-11-24] MEDS: SIMETHICONE 40 MG/0.6 ML ORAL DROP PO SCH ×4 (05:47→21:37)
[2019-11-24] MEDS: SOD CHL 0.9%/ KCL 20MEQ 1,000 ML IV SCH ×2 (05:48→16:54)
[2019-11-24 06:51] LABS: Partial Thromboplastin Time 26.7 sec (23.0-31.2)
--- NOTE | 2019-11-24 06:54 | NUR ---
end of shift note will endorse pt care to day shift RN. pt aox4, no s/s of distress or sob
[2019-11-24 08:00] VITALS: BP 159/76
[2019-11-24] MEDS ORDERED: NALOXONE HCL 0.4 MG/ML VIAL ONE (08:50)
[2019-11-24] MEDS ORDERED: SODIUM CHLORIDE LOCK 10 ML ONE (08:50)
[2019-11-24] MEDS ORDERED: FLUMAZENIL 0.1 MG/ML INJ 10ML MDV IV ONE (08:50)
[2019-11-24] MEDS ORDERED: LIDOCAINE VISCOUS 2% 15ML UD ONE (08:50)
[2019-11-24] MEDS ORDERED: diphenhdrAMINE HCL 50 MG/1 ML VL ONE (08:51)
[2019-11-24 09:00] VITALS: BP 159/75
--- NOTE | 2019-11-24 09:11 | NUR ---
PT OFF UNIT TO PREOP VIA BED, NO ACUTE DISTRESS NOTED AT DEPARTURE.
[2019-11-24] MEDS: fentaNYL CITRATE 100 MCG/2 ML VL ONE ×2 (09:30→09:33)
[2019-11-24] MEDS: MIDAZOLAM HCL 5 MG/ML-1ML VIAL ONE ×2 (09:30→09:33)
[2019-11-24] MEDS ORDERED: amLODIPine BESYLATE 5 MG TAB PO SCH (10:00)
[2019-11-24] MEDS ORDERED: PROPRANOLOL HCL 20 MG TAB PO SCH (10:00)
[2019-11-24] MEDS: PANTOPRAZOLE 40 MG/10 ML VIAL INJ IV SCH ×2 (10:56→21:36)
[2019-11-24] MEDS: PROPRANOLOL HCL 20 MG TAB PO SCH (10:58)
[2019-11-24] MEDS: amLODIPine BESYLATE 5 MG TAB PO SCH (10:58)
[2019-11-24] MEDS: ASPirin-EC 81 mg tab PO SCH (10:58)
[2019-11-24] MEDS: ATENOLOL 50 MG TAB PO SCH (10:59)
--- NOTE | 2019-11-24 11:47 | NUR ---
Nutrition Assessment Est energy needs 9345-2587 kcal (18-20 kcal/kg BW 87.2kg) Est protein needs 59-77g (1-1.3g/kg IBW 59kg) WIll reassess prn. Addendum: 11/24/19 at [address] Amended: Links added.
[2019-11-24 13:00] VITALS: BP 146/68
--- NOTE | 2019-11-24 14:31 | NUR ---
assessment Patient is a 74 year old female who is alert and oriented. Patients cognitive abilities are intact. Prior to admission patient lived home with family and functioned with assistance. Per patient she will return home to her prior living arrangements post discharge and family will transport her home. Patient informed me her PCP is Dr Solorio. Patient informed me she has no need for DME. Patient informed me she has a [facility] caregiver Nina that comes in 2.5 hours per day. I informed patient I will continue to monitor and follow up as appropriate for any post discharge needs. I informed patient she has a right to speak to a social media strategist regarding all care. I informed patient she has a right to participate in any and all discharge planning. Patient does not have a POA and advanced directive. I have offered patient information on POA and advanced directives. I informed the patient the advantages and benefits of having an Advanced Directive. Patient verbalized understanding and agreed to discharge plan. Addendum: 11/24/19 at 1435 by Sylvie DUNBAR Amended: Links added.
[2019-11-24 16:47] VITALS: BP 168/69
--- NOTE | 2019-11-24 20:02 | NUR ---
Opening Shift Note Assumed care of patient. Awake, alert and oriented x4. No S/S of distress/SOB or pain at this time. Instructed on POC and to call for assist PRN. Bed locked, in lowest position, call light within reach, side rails up x2. Will continue to monitor for changes Q1hr and PRN.
[2019-11-24] MEDS: ATORVASTATIN 20 MG TAB PO SCH (21:36)
[2019-11-24] MEDS: ZOLPIDEM TARTRATE 5 MG TAB PO PRN (21:37)
[2019-11-24 22:00] VITALS: BP 190/80
[2019-11-25] MEDS: SOD CHL 0.9%/ KCL 20MEQ 1,000 ML IV SCH ×3 (03:25→21:59)
[2019-11-25 05:00] VITALS: BP 209/95
[2019-11-25] MEDS: ONDANSETRON HCL 4 MG/2 ML VIAL IV PRN (05:14)
[2019-11-25] MEDS: MORPHINE SULFATE 4 MG/ML SYR/VIAL IV PRN ×3 (05:14→22:10)
[2019-11-25] MEDS: cloNIDine HCL 0.1 MG TAB PO PRN ×2 (05:15→18:48)
[2019-11-25] MEDS: SIMETHICONE 40 MG/0.6 ML ORAL DROP PO SCH ×4 (06:34→22:00)
[2019-11-25] MEDS: InsuLIN REG 1unit/0.01ml Soln (100units/ml) SC SCH ×4 (06:35→22:00)
[2019-11-25] MEDS: ACCU-CHEK COMFORT CURVE STRIP VI SCH ×4 (06:36→22:01)
[2019-11-25] MEDS: SUCRALFATE 1 GM/10 ML ORAL SUSP PO SCH ×4 (06:36→22:00)
[2019-11-25 08:00] VITALS: BP 164/96
[2019-11-25] MEDS: PANTOPRAZOLE 40 MG/10 ML VIAL INJ IV SCH ×2 (09:23→21:59)
[2019-11-25] MEDS: ASPirin-EC 81 mg tab PO SCH (09:25)
[2019-11-25] MEDS: amLODIPine BESYLATE 5 MG TAB PO SCH (09:25)
[2019-11-25] MEDS: PROPRANOLOL HCL 20 MG TAB PO SCH (09:25)
[2019-11-25] MEDS: ATENOLOL 50 MG TAB PO SCH (09:26)
[2019-11-25] MEDS: METOCLOPRAMIDE HCL 5MG/ml INJ 2ml VIAL IV SCH ×2 (12:45→21:59)
[2019-11-25 13:00] VITALS: BP 194/73
[2019-11-25] MEDS: LORazepam 2MG/ML-1ML VIAL IV PRN (16:38)
[2019-11-25 22:00] VITALS: BP 183/72
[2019-11-25] MEDS: ATORVASTATIN 20 MG TAB PO SCH (22:00)
[2019-11-25] MEDS: ZOLPIDEM TARTRATE 5 MG TAB PO PRN (22:10)
[2019-11-26] VITALS (7 sets, daily range): BP systolic 181–195; BP diastolic 56–76
[2019-11-26] MEDS: cloNIDine HCL 0.1 MG TAB PO PRN ×2 (05:35→21:52)
[2019-11-26] MEDS: SUCRALFATE 1 GM/10 ML ORAL SUSP PO SCH ×4 (06:48→21:09)
[2019-11-26] MEDS: InsuLIN REG 1unit/0.01ml Soln (100units/ml) SC SCH ×4 (06:50→21:51)
[2019-11-26] MEDS: MORPHINE SULFATE 4 MG/ML SYR/VIAL IV PRN ×2 (06:53→21:11)
[2019-11-26] MEDS: ACCU-CHEK COMFORT CURVE STRIP VI SCH ×4 (06:53→21:10)
[2019-11-26] MEDS: SIMETHICONE 40 MG/0.6 ML ORAL DROP PO SCH ×4 (06:53→21:10)
--- NOTE | 2019-11-26 07:38 | NUR ---
Received patient from [facility] shift rn, awake, A/O x4. Denies SOB, reports 4/10 abdominal pain. Patient is requesting ativan prn with her AM medications. Plan of care discussed. patient encouraged to call for assistance prn. Bed in low and locked position, call light and phone within reach. Will continue to monitor q1hr and PRN.
[2019-11-26] MEDS: LORazepam 2MG/ML-1ML VIAL IV PRN (09:29)
[2019-11-26] MEDS: METOCLOPRAMIDE HCL 5MG/ml INJ 2ml VIAL IV SCH ×2 (09:30→21:09)
[2019-11-26] MEDS: PANTOPRAZOLE 40 MG/10 ML VIAL INJ IV SCH (09:30)
[2019-11-26] MEDS: PROPRANOLOL HCL 20 MG TAB PO SCH (09:32)
[2019-11-26] MEDS: ATENOLOL 50 MG TAB PO SCH (09:34)
[2019-11-26] MEDS: amLODIPine BESYLATE 5 MG TAB PO SCH (09:35)
[2019-11-26] MEDS: ASPirin-EC 81 mg tab PO SCH (09:35)
--- NOTE | 2019-11-26 09:43 | NUR ---
PROPANOLOL NOT ADMINISTERED DUE TO DECREASED HR 57
[2019-11-26] MEDS ORDERED: BENAZEPRIL HCL 10 MG TAB PO ONE (15:15)
[2019-11-26] MEDS ORDERED: amLODIPine BESYLATE 5 MG TAB PO ONE (15:15)
--- NOTE | 2019-11-26 15:15 | NUR ---
DR. MAC AT BEDSIDE, DISCUSSED PLAN OF CARE WITH PATIENT. NEW ORDER: ONE TIME LOTENSIN 1OMG AND NORVASC 10MG
--- NOTE | 2019-11-26 19:10 | NUR ---
OPENING SHIFT NOTE: Assumed care of patient. Patient A/O X 4, no s/s of SOB or distress, patient denies pain. Bed in lowest locked position with two side rails raised, call knutson within reach. Instructed on POC and encouraged to call for assistance, all questions and concerns addressed, patient verbalizes understanding. Will continue to monitor Q1 hr and PRN.
[2019-11-26] MEDS: ATORVASTATIN 20 MG TAB PO SCH (21:10)
[2019-11-26] MEDS: PANTOPRAZOLE 40 MG TAB PO SCH (21:10)
[2019-11-26] MEDS: ZOLPIDEM TARTRATE 5 MG TAB PO PRN (22:55)
[2019-11-27] MEDS: cloNIDine HCL 0.1 MG TAB PO PRN (04:12)
[2019-11-27 05:00] VITALS: BP 191/80
[2019-11-27] MEDS: SIMETHICONE 40 MG/0.6 ML ORAL DROP PO SCH ×2 (06:00→11:48)
[2019-11-27] MEDS: SUCRALFATE 1 GM/10 ML ORAL SUSP PO SCH ×3 (06:22→17:00)
[2019-11-27] MEDS: InsuLIN REG 1unit/0.01ml Soln (100units/ml) SC SCH ×3 (06:26→17:00)
[2019-11-27] MEDS: ACCU-CHEK COMFORT CURVE STRIP VI SCH ×2 (06:26→11:31)
[2019-11-27] MEDS: MORPHINE SULFATE 4 MG/ML SYR/VIAL IV PRN (06:27)
--- NOTE | 2019-11-27 07:32 | NUR ---
Received patient from [facility] shift rn, awake, A/O x4. Denies SOB, no reports of pain at this time. Plan of care discussed. patient encouraged to call for assistance prn. Bed in low and locked position, call light and phone within reach. Will continue to monitor q1hr and PRN.
[2019-11-27 08:00] VITALS: BP 151/65
[2019-11-27] MEDS: METOCLOPRAMIDE HCL 5MG/ml INJ 2ml VIAL IV SCH (09:19)
[2019-11-27] MEDS: PANTOPRAZOLE 40 MG TAB PO SCH (09:20)
[2019-11-27] MEDS: ASPirin-EC 81 mg tab PO SCH (09:22)
[2019-11-27] MEDS: ATENOLOL 50 MG TAB PO SCH (09:23)
[2019-11-27] MEDS ORDERED: amLODIPine BESYLATE 5 MG TAB PO SCH (10:00)
[2019-11-27] MEDS ORDERED: BENAZEPRIL HCL 10 MG TAB PO SCH (10:00)
[2019-11-27] MEDS: LORazepam 2MG/ML-1ML VIAL IV PRN (11:29)
[2019-11-27 12:00] VITALS: BP 159/72
--- NOTE | 2019-11-27 12:15 | NUR ---
Nutrition Followup Notes Wt: 76.0 kg Pt sleeping with no family by beside no distress noted currently on cardiac diet with adequate PO of 755 x 6 per RN doc Est energy needs 2377-5339 kcal (18-20 kcal/kg BW 87.2kg) Est protein needs 59-77g (1-1.3g/kg IBW 59kg) WIll reassess prn. LABS: GLU 160 H GI: Pt with 1 BM today per RN doc. BS: 20 low risk. Refer to wound assessment report for full details. PES: Resolved: Inadequate oral intake aeb pt with 57% of Clear liquid diet 11/22, NPO 11/23 r/t current medical condition Comments: Will continue to monitor PO intake, skin status, pertinent labs and weight trends. Will f/u in 3-5 days. 1) refer pt to [facility] on Dc 2) Continue current plan of care
--- NOTE | 2019-11-27 12:42 | NUR ---
Dr. santillan at bedside, discussed discharge plans with patient. Patient verbalized understanding.
[2019-11-27] MEDS ORDERED: SUCR1TAB22 OR (13:12)
[2019-11-27] MEDS ORDERED: PANT40T PO (13:12)
[2019-11-27] MEDS ORDERED: HYDR50TA15 PO (13:12)
[2019-11-27] MEDS ORDERED: HYOS0.1297 PO (13:46)
[2019-11-27] MEDS ORDERED: METO-281 PO (13:46)
[2019-11-27 14:36] VITALS: BP 151/65
--- NOTE | 2019-11-27 16:55 | NUR ---
Patient discharged home per MD's order. Patient is stable at this time. Discharge summary, new prescriptions and follow up instructions provided. POM given to patient. IV discontinued and tele box returned to ICU.
== END 2019-11-27 16:55 | disposition home or self-care (01) | DRG 392 ==
LOC: ER 10:59 → EDBD 10:59 → TELE 11:00 → TELE-CENTR 18:22
PROVIDERS: ADMIT Nurse Practitioner Acute Care; ATTEND Family Medicine
PROC: 0DJ08ZZ Inspection of Upper Intestinal Tract, Via Natural or Artificial Opening Endoscopic (ICD-10-PCS; principal; 2019-11-24 09:24)
DX: K29.70 Gastritis, unspecified, without bleeding (principal); I16.9 Hypertensive crisis, unspecified; D13.6 Benign neoplasm of pancreas; I25.10 Atherosclerotic heart disease of native coronary artery without angina pectoris; F41.9 Anxiety disorder, unspecified; K52.9 Noninfective gastroenteritis and colitis, unspecified; I10 Essential (primary) hypertension; K29.80 Duodenitis without bleeding; D35.02 Benign neoplasm of left adrenal gland; D63.8 Anemia in other chronic diseases classified elsewhere; E11.9 Type 2 diabetes mellitus without complications; E86.0 Dehydration; Z20.828 Contact with and (suspected) exposure to other viral communicable diseases; K57.30 Diverticulosis of large intestine without perforation or abscess without bleeding; J43.9 Emphysema, unspecified; Z82.49 Family history of ischemic heart disease and other diseases of the circulatory system; Z79.82 Long term (current) use of aspirin; Z79.02 Long term (current) use of antithrombotics/antiplatelets; Z90.710 Acquired absence of both cervix and uterus; Z95.5 Presence of coronary angioplasty implant and graft; Z90.49 Acquired absence of other specified parts of digestive tract; Z87.891 Personal history of nicotine dependence; Z87.19 Personal history of other diseases of the digestive system; Z79.899 Other long term (current) drug therapy; Z79.84 Long term (current) use of oral hypoglycemic drugs
CPT/HCPCS: 36415; 43235; 71045; 71250; 74176; 74183; 80053; 81001; 82378; 82962; 83036; 83605; 83690; 84484; 85025; 85610; 85730; 86301; 86677; 86850; 86900; 86901; 87040; 93005; 96361; 96365; 96375; C9113; G0378; J1815; J2250; J2405; J2543; J3490

== ENCOUNTER 2021-01-02 01:28 | Inpatient (IN) | payer OTHER, MEDICAID ==
[~2021-01-02] VITALS: Ht 160 cm; Wt 72.7 kg
[2021-01-02] VITALS (32 sets, daily range): BP systolic 97–175; BP diastolic 40–83
[~2021-01-02 01:28] MED LIST changes: -ASPI-231 PO; +ASPI1TAB20 PO; +ATEN50TA PO; +B-COTAB56 PO; +DOCU100C10 PO; +HYDR50TA15 PO; +HYOS0.1289 PO; +METO-281 PO; +MULT-927 PO; -OME20T PO; +PANT40T PO; +PRIM50TA27 PO; -PRIM50TA29 PO; +ROSU10TA16 PO; +SUCR1TAB22 OR
[2021-01-02] MEDS ORDERED: NOREPINEPHRINE 8 MG/250ML KIT 250 ML IV ONE (01:59)
[2021-01-02] MEDS ORDERED: NOREPINEPHRINE 8 MG/250ML KIT 250 ML IV SCH (02:00)
[2021-01-02] MEDS ORDERED: SODIUM CHLORIDE 0.9% 2,000 ML IV ONE ×2 (02:00)
[2021-01-02 02:22] LABS: Albumin 2.7 g/dL (3.4-5.0); BUN/Creatinine Ratio 6.8; Potassium 4.3 mmol/L (3.5-5.1)
[2021-01-02 02:25] LABS: Bilirubin, Total 0.1 mg/dL (0.2-1.0); Total Protein 6.2 g/dL (6.4-8.2)
[2021-01-02 02:27] LABS: Lactic Acid w/Reflex 13.6 mmol/L (0.4-2.0)
[2021-01-02 02:30] LABS: INR 0.94 (0.9-1.15)
[2021-01-02] MEDS: fentaNYL Drip 2500mCg/250mlNS 250 ML IV SCH (02:36)
[2021-01-02] MEDS ORDERED: fentaNYL Drip 2500mCg/250mlNS 250 ML IV ONE (02:36)
[2021-01-02 02:59] LABS: Hematocrit 36.8 % (36.0-46.0); Hemoglobin 10.9 g/dL (12.2-16.2); Mean Corpuscular Hgb Conc. 29.7 g/dL (32.0-36.0); Mean Corpuscular Volume 90.7 fL (80.0-100.0); Red Blood Cells 4.06 10^6/uL (4.0-5.20); Red Cell Distribution Width 16.9 % (11.8-14.3); White Blood Cell 12.3 10^3/uL (4.4-10.8)
[2021-01-02 03:00] LABS: Basophils % (manual) 0 (0.0-2.0); Blast Cells 0; Metamyelocytes % 0; Promyelocytes % 0; Reactive Lymphocytes 0
[2021-01-02] MEDS ORDERED: HEPARIN SODIUM (PORCINE) 5000 UNITS/ML 1ML VIAL IV ONE (03:00)
[2021-01-02] MEDS ORDERED: HEPARIN DRIP/D5W 100UNITS/ML 250 ML IV SCH (03:00)
[2021-01-02 03:39] LABS: Band Neutrophils % (manual) 7; Eosinophils % (manual) 2 (0-7); Lymphocytes % (manual) 51 (10.0-50.0); Monocytes % (manual) 6 (0-12); Myelocytes % 4
[2021-01-02] MEDS ORDERED: LABETALOL HCL 5 MG/ML 4ML SYRINGE IV ONE (03:45)
[2021-01-02] MEDS ORDERED: PROPOFOL 100 ML IV ONE (03:55)
[2021-01-02] MEDS: PROPOFOL 100 ML IV SCH (04:10)
[2021-01-02] MEDS ORDERED: IOHEXOL 350 MG/ML 100ML IJ ONE (04:29)
[2021-01-02] MEDS: MIDAZOLAM DRIP 50 mg/50mL 50 ML IV SCH ×2 (04:30→20:56)
[2021-01-02] MEDS ORDERED: DEXTROSE (50%) 50ML SYRG IV PRN (07:00)
[2021-01-02] MEDS ORDERED: hydrALAZINE HCL 20 MG/ML VL IV PRN ×3 (07:00→08:00)
[2021-01-02] MEDS ORDERED: MORPHINE SULFATE INJECTION 2 MG/ML SYRG IV PRN ×2 (07:00→09:15)
[2021-01-02] MEDS ORDERED: SOD CHL 0.45% WITH 20MEQ KCL 1,000 ML IV ONE (07:00)
[2021-01-02] MEDS ORDERED: NITROGLYCERIN 0.4 MG SL TAB SL PRN ×2 (07:00→09:15)
[2021-01-02] MEDS ORDERED: DOCUSATE SOD 100 MG CAP PO PRN (07:15)
[2021-01-02] MEDS: NOREPINEPHRINE 8 MG/250ML KIT 250 ML IV SCH (07:30)
[2021-01-02] MEDS ORDERED: VANCOMYCIN PER PHARMACY 0 MG IV SCH (07:30)
[2021-01-02] MEDS: ATENOLOL 50 MG TAB PO SCH (10:00)
[2021-01-02] MEDS: amLODIPine BESYLATE 5 MG TAB PO SCH (10:00)
[2021-01-02] MEDS: CLOPIDOGREL BISULFATE 75 MG TAB PO SCH (10:00)
[2021-01-02] MEDS: PANTOPRAZOLE 40 MG TAB PO SCH ×2 (10:00→21:02)
[2021-01-02] MEDS: BENAZEPRIL HCL 10 MG TAB PO SCH (10:00)
[2021-01-02] MEDS: ACCU-CHEK COMFORT CURVE STRIP VI SCH ×5 (10:33→23:19)
[2021-01-02] MEDS: InsuLIN REG 1unit/0.01ml Soln (100units/ml) SC SCH ×5 (10:37→23:11)
[2021-01-02] MEDS: ASPirin-EC 81 mg tab PO SCH (10:41)
[2021-01-02] MEDS ORDERED: PANT40TA2 PO (10:46)
[2021-01-02] MEDS ORDERED: DOCU-94 PO (10:46)
[2021-01-02] MEDS ORDERED: SUMA100T15 PO (10:46)
[2021-01-02] MEDS ORDERED: SERT-160 PO (10:46)
[2021-01-02] MEDS ORDERED: METO10TA3 PO (10:46)
[2021-01-02] MEDS: VANCOMYCIN 1GM/250ML 250 ML IV SCH (11:43)
[2021-01-02] MEDS: ALBUTEROL SULF 2.5 MG/0.5ML(0.5%) NEB SOLN NEB SCH ×3 (12:04→23:58)
[2021-01-02] MEDS: IPRATROPIUM BROM 0.5 MG/2.5ML INH SOL NEB SCH ×3 (12:04→23:58)
[2021-01-02 12:29] LABS: Partial Thromboplastin Time 55.5 sec (23.6-33.0)
[2021-01-02 12:30] LABS: INR 2.46 (0.9-1.15)
[2021-01-02] MEDS: PIPERACILLIN-TAZOB 3.375GM 100 ML IV SCH ×3 (13:12→23:19)
[2021-01-02 13:57] LABS: Urine Bacteria NONE SEEN /hpf (None Seen); Urine Blood 1+ /uL (Negative); Urine Specific Gravity 1.022 (1.001-1.035); Urine WBC 2 /hpf (0 - 5)
[2021-01-02] MEDS: HEPARIN DRIP/D5W 100UNITS/ML 250 ML IV SCH (14:31)
[2021-01-02 21:02] LABS: INR 0.96 (0.9-1.15)
[2021-01-02] MEDS: SODIUM CHLOR 0.9% PF (SALINE LOCK) 10ML VIAL/SYR IV SCH (21:02)
[2021-01-03] VITALS (86 sets, daily range): BP systolic 104–179; BP diastolic 50–83
[2021-01-03] MEDS: fentaNYL Drip 2500mCg/250mlNS 250 ML IV SCH ×2 (00:18→12:24)
[2021-01-03] MEDS: PROPOFOL 100 ML IV SCH ×5 (00:21→22:21)
[2021-01-03 02:51] LABS: INR 0.96 (0.9-1.15)
[2021-01-03 03:15] LABS: Partial Thromboplastin Time 76.9 sec (23.6-33.0)
[2021-01-03] MEDS: InsuLIN REG 1unit/0.01ml Soln (100units/ml) SC SCH ×5 (03:18→20:19)
[2021-01-03] MEDS: HEPARIN DRIP/D5W 100UNITS/ML 250 ML IV SCH (03:24)
[2021-01-03] MEDS: ACCU-CHEK COMFORT CURVE STRIP VI SCH ×5 (03:25→20:19)
[2021-01-03] MEDS: MIDAZOLAM DRIP 50 mg/50mL 50 ML IV SCH ×3 (03:32→23:55)
[2021-01-03] MEDS: PIPERACILLIN-TAZOB 3.375GM 100 ML IV SCH ×4 (05:07→23:54)
[2021-01-03 07:18] LABS: Basophils # (auto) 0 10 ^3/uL (0-0.2); Basophils % (auto) 0.1 % (0.0-2.0); Eosinophils # (auto) 0 10 ^3/uL (0-0.8); Hemoglobin 9.4 g/dL (12.2-16.2); Monocytes # (auto) 0.5 10 ^3/uL (0-1.3); Monocytes % (auto) 3.6 % (0.0-12.0)
[2021-01-03 07:21] LABS: Lymphocytes # (auto) 1.3 10 ^3/uL (0.4-5.4); Lymphocytes % (auto) 8.4 % (10.0-50.0); Mean Corpuscular Hemoglobin 27.1 pg (28.0-32.0); Mean Corpuscular Hgb Conc. 32.5 g/dL (32.0-36.0); Mean Corpuscular Volume 83.4 fL (80.0-100.0); Neutrophils # (auto) 13.1 10 ^3/uL (1.6-8.6); Neutrophils % (auto) 87.9 % (37.0-80.0); Red Blood Cells 3.47 10^6/uL (4.0-5.20); Red Cell Distribution Width 16.4 % (11.8-14.3); White Blood Cell 14.9 10^3/uL (4.4-10.8)
[2021-01-03] MEDS: NOREPINEPHRINE 8 MG/250ML KIT 250 ML IV SCH (07:30)
[2021-01-03] MEDS: ALBUTEROL SULF 2.5 MG/0.5ML(0.5%) NEB SOLN NEB SCH ×3 (07:31→18:34)
[2021-01-03] MEDS: IPRATROPIUM BROM 0.5 MG/2.5ML INH SOL NEB SCH ×3 (07:31→18:34)
[2021-01-03 08:20] LABS: Potassium 4.7 mmol/L (3.5-5.1)
[2021-01-03 08:21] LABS: Albumin 2.2 g/dL (3.4-5.0); BUN/Creatinine Ratio 18.8; Bilirubin, Total 0.3 mg/dL (0.2-1.0); Calcium 7.3 mg/dL (8.5-10.1)
[2021-01-03] MEDS: PANTOPRAZOLE 40 MG TAB PO SCH ×2 (09:34→22:00)
[2021-01-03] MEDS: amLODIPine BESYLATE 5 MG TAB PO SCH (09:35)
[2021-01-03] MEDS: ATENOLOL 50 MG TAB PO SCH (09:36)
[2021-01-03] MEDS: FUROSEMIDE 40 MG/4 ML VIAL IV SCH (09:41)
[2021-01-03] MEDS: CLOPIDOGREL BISULFATE 75 MG TAB PO SCH (09:41)
[2021-01-03] MEDS: ASPirin-EC 81 mg tab PO SCH (09:41)
[2021-01-03] MEDS: VANCOMYCIN 1GM/250ML 250 ML IV SCH (09:42)
[2021-01-03 09:48] LABS: INR 0.95 (0.9-1.15); Partial Thromboplastin Time 64.1 sec (23.6-33.0)
[2021-01-03] MEDS: BENAZEPRIL HCL 10 MG TAB PO SCH (10:00)
[2021-01-03] MEDS: SODIUM CHLOR 0.9% PF (SALINE LOCK) 10ML VIAL/SYR IV SCH ×2 (10:03→22:00)
[2021-01-03 16:35] LABS: INR 0.94 (0.9-1.15); Partial Thromboplastin Time 48.6 sec (23.6-33.0)
[2021-01-03 22:56] LABS: INR 0.99 (0.9-1.15)
[2021-01-03 23:32] LABS: Partial Thromboplastin Time 78.9 sec (23.6-33.0)
[2021-01-04] VITALS (11 sets, daily range): BP systolic 89–154; BP diastolic 48–68
[2021-01-04] MEDS: ALBUTEROL SULF 2.5 MG/0.5ML(0.5%) NEB SOLN NEB SCH ×4 (00:09→19:19)
[2021-01-04] MEDS: IPRATROPIUM BROM 0.5 MG/2.5ML INH SOL NEB SCH ×4 (00:09→19:19)
[2021-01-04] MEDS: InsuLIN REG 1unit/0.01ml Soln (100units/ml) SC SCH ×6 (00:09→20:38)
[2021-01-04] MEDS: ACCU-CHEK COMFORT CURVE STRIP VI SCH ×6 (00:10→20:34)
[2021-01-04] MEDS: NOREPINEPHRINE 8 MG/250ML KIT 250 ML IV SCH (04:45)
[2021-01-04] MEDS: PIPERACILLIN-TAZOB 3.375GM 100 ML IV SCH ×3 (06:10→18:18)
[2021-01-04 07:00] LABS: Basophils # (auto) 0 10 ^3/uL (0-0.2); Basophils % (auto) 0.2 % (0.0-2.0); Eosinophils # (auto) 0 10 ^3/uL (0-0.8); Eosinophils % (auto) 0.3 % (0.0-7.0); Hematocrit 26.6 % (36.0-46.0); Hemoglobin 8.6 g/dL (12.2-16.2); Lymphocytes # (auto) 0.8 10 ^3/uL (0.4-5.4); Lymphocytes % (auto) 6.4 % (10.0-50.0); Mean Corpuscular Hgb Conc. 32.4 g/dL (32.0-36.0); Mean Corpuscular Volume 83.1 fL (80.0-100.0); Monocytes # (auto) 0.6 10 ^3/uL (0-1.3); Monocytes % (auto) 5.2 % (0.0-12.0); Neutrophils # (auto) 10.9 10 ^3/uL (1.6-8.6); Neutrophils % (auto) 87.9 % (37.0-80.0); White Blood Cell 12.3 10^3/uL (4.4-10.8)
[2021-01-04 07:12] LABS: BUN/Creatinine Ratio 19.4; Calcium 6.8 mg/dL (8.5-10.1); Potassium 3.4 mmol/L (3.5-5.1)
[2021-01-04 09:13] LABS: INR 0.94 (0.9-1.15); Partial Thromboplastin Time 28.2 sec (23.6-33.0)
[2021-01-04] MEDS: PANTOPRAZOLE 40 MG TAB PO SCH ×2 (09:57→23:08)
[2021-01-04] MEDS: VANCOMYCIN 1GM/250ML 250 ML IV SCH (09:57)
[2021-01-04] MEDS: FUROSEMIDE 40 MG/4 ML VIAL IV SCH (10:00)
[2021-01-04] MEDS: BENAZEPRIL HCL 10 MG TAB PO SCH (10:00)
[2021-01-04] MEDS: ATENOLOL 50 MG TAB PO SCH (10:00)
[2021-01-04] MEDS: amLODIPine BESYLATE 5 MG TAB PO SCH (10:00)
[2021-01-04] MEDS: SODIUM CHLOR 0.9% PF (SALINE LOCK) 10ML VIAL/SYR IV SCH ×2 (10:03→23:07)
[2021-01-04] MEDS: CLOPIDOGREL BISULFATE 75 MG TAB PO SCH (10:53)
[2021-01-04] MEDS: ASPirin-EC 81 mg tab PO SCH (10:53)
[2021-01-04] MEDS ORDERED: HEPARIN SODIUM (PORCINE) 5000 UNITS/ML 1ML VIAL SC SCH (22:00)
[2021-01-05] VITALS (13 sets, daily range): BP systolic 98–123; BP diastolic 48–67
[2021-01-05] MEDS: IPRATROPIUM BROM 0.5 MG/2.5ML INH SOL NEB SCH ×3 (00:12→15:13)
[2021-01-05] MEDS: ALBUTEROL SULF 2.5 MG/0.5ML(0.5%) NEB SOLN NEB SCH ×3 (00:12→15:13)
[2021-01-05] MEDS: ACCU-CHEK COMFORT CURVE STRIP VI SCH ×6 (00:25→22:00)
[2021-01-05] MEDS: PIPERACILLIN-TAZOB 3.375GM 100 ML IV SCH ×4 (00:26→18:39)
[2021-01-05] MEDS: InsuLIN REG 1unit/0.01ml Soln (100units/ml) SC SCH ×6 (00:28→22:14)
[2021-01-05] MEDS: fentaNYL Drip 2500mCg/250mlNS 250 ML IV SCH (02:45)
[2021-01-05] MEDS: PROPOFOL 100 ML IV SCH (04:00)
[2021-01-05] MEDS: MIDAZOLAM DRIP 50 mg/50mL 50 ML IV SCH (04:30)
[2021-01-05] MEDS: NOREPINEPHRINE 8 MG/250ML KIT 250 ML IV SCH (07:47)
[2021-01-05 10:26] LABS: Calcium 7.9 mg/dL (8.5-10.1); Potassium 3.1 mmol/L (3.5-5.1)
[2021-01-05 10:28] LABS: BUN/Creatinine Ratio 15.7
[2021-01-05] MEDS: PANTOPRAZOLE 40 MG TAB PO SCH ×2 (10:40→22:49)
[2021-01-05] MEDS: BENAZEPRIL HCL 10 MG TAB PO SCH (10:40)
[2021-01-05] MEDS: amLODIPine BESYLATE 5 MG TAB PO SCH (10:40)
[2021-01-05] MEDS: SODIUM CHLOR 0.9% PF (SALINE LOCK) 10ML VIAL/SYR IV SCH ×2 (10:40→22:34)
[2021-01-05] MEDS: ATENOLOL 50 MG TAB PO SCH (10:41)
[2021-01-05] MEDS: CLOPIDOGREL BISULFATE 75 MG TAB PO SCH (11:14)
[2021-01-05] MEDS: ASPirin-EC 81 mg tab PO SCH (11:14)
[2021-01-05] MEDS: VANCOMYCIN 1GM/250ML 250 ML IV SCH ×2 (11:20→22:49)
[2021-01-05] MEDS: FUROSEMIDE 40 MG/4 ML VIAL IV SCH (11:21)
[2021-01-05] MEDS: ENOXAPARIN SOD 40 MG/0.4 ML SYRINGE SC SCH (11:24)
[2021-01-06] VITALS (73 sets, daily range): BP systolic 80–153; BP diastolic 42–65
[2021-01-06] MEDS: PIPERACILLIN-TAZOB 3.375GM 100 ML IV SCH ×3 (00:31→12:00)
[2021-01-06] MEDS: ALBUTEROL SULF 2.5 MG/0.5ML(0.5%) NEB SOLN NEB SCH ×4 (00:39→17:54)
[2021-01-06] MEDS: IPRATROPIUM BROM 0.5 MG/2.5ML INH SOL NEB SCH ×5 (00:39→17:54)
[2021-01-06] MEDS: ACCU-CHEK COMFORT CURVE STRIP VI SCH ×6 (00:47→20:00)
[2021-01-06] MEDS: InsuLIN REG 1unit/0.01ml Soln (100units/ml) SC SCH ×6 (01:08→20:00)
[2021-01-06] MEDS: fentaNYL Drip 2500mCg/250mlNS 250 ML IV SCH (02:24)
[2021-01-06] MEDS: PROPOFOL 100 ML IV SCH (04:00)
[2021-01-06] MEDS: MIDAZOLAM DRIP 50 mg/50mL 50 ML IV SCH (04:14)
[2021-01-06] MEDS: NOREPINEPHRINE 8 MG/250ML KIT 250 ML IV SCH (05:07)
[2021-01-06] MEDS: SODIUM CHLOR 0.9% PF (SALINE LOCK) 10ML VIAL/SYR IV SCH ×2 (08:42→22:00)
[2021-01-06] MEDS: ENOXAPARIN SOD 40 MG/0.4 ML SYRINGE SC SCH (10:00)
[2021-01-06] MEDS: CLOPIDOGREL BISULFATE 75 MG TAB PO SCH (10:00)
[2021-01-06] MEDS: ASPirin-EC 81 mg tab PO SCH (10:00)
[2021-01-06] MEDS: PANTOPRAZOLE 40 MG TAB PO SCH ×2 (10:00→22:00)
[2021-01-06] MEDS: FUROSEMIDE 40 MG/4 ML VIAL IV SCH (10:00)
[2021-01-06] MEDS: VANCOMYCIN 1GM/250ML 250 ML IV SCH (10:00)
[2021-01-06] MEDS: amLODIPine BESYLATE 5 MG TAB PO SCH (10:00)
[2021-01-06] MEDS: ATENOLOL 50 MG TAB PO SCH (10:00)
[2021-01-06] MEDS: BENAZEPRIL HCL 10 MG TAB PO SCH (10:00)
[2021-01-06 10:27] LABS: Basophils # (auto) 0 10 ^3/uL (0-0.2); Eosinophils # (auto) 0.1 10 ^3/uL (0-0.8); Hemoglobin 7.3 g/dL (12.2-16.2); Mean Corpuscular Hemoglobin 27.5 pg (28.0-32.0); Monocytes # (auto) 0.5 10 ^3/uL (0-1.3)
[2021-01-06 10:28] LABS: Basophils % (auto) 0.4 % (0.0-2.0); Eosinophils % (auto) 0.9 % (0.0-7.0); Hematocrit 22.3 % (36.0-46.0); Lymphocytes % (auto) 11.3 % (10.0-50.0); Mean Corpuscular Hgb Conc. 32.8 g/dL (32.0-36.0); Mean Corpuscular Volume 83.7 fL (80.0-100.0); Monocytes % (auto) 5.5 % (0.0-12.0); Neutrophils # (auto) 7.6 10 ^3/uL (1.6-8.6); Neutrophils % (auto) 81.9 % (37.0-80.0); Nucleated Red Blood Cells % 0.1 %; Red Blood Cells 2.67 10^6/uL (4.0-5.20); Red Cell Distribution Width 16.2 % (11.8-14.3); White Blood Cell 9.3 10^3/uL (4.4-10.8)
[2021-01-06 10:58] LABS: Albumin 1.5 g/dL (3.4-5.0); BUN/Creatinine Ratio 15.8; Bilirubin, Total 0.5 mg/dL (0.2-1.0); Calcium 7.6 mg/dL (8.5-10.1); Magnesium 2.6 mg/dL (1.6-2.6); Total Protein 4.9 g/dL (6.4-8.2)
[2021-01-06] MEDS ORDERED: POTASSIUM CHL 20MEQ/100ML 100 ML IV ONE (11:45)
[2021-01-07] VITALS (103 sets, daily range): BP systolic 85–214; BP diastolic 40–83
[2021-01-07] MEDS: IPRATROPIUM BROM 0.5 MG/2.5ML INH SOL NEB SCH ×4 (00:19→18:15)
[2021-01-07] MEDS: ALBUTEROL SULF 2.5 MG/0.5ML(0.5%) NEB SOLN NEB SCH ×4 (00:19→18:15)
[2021-01-07] MEDS: fentaNYL Drip 2500mCg/250mlNS 250 ML IV SCH (02:45)
[2021-01-07] MEDS: PROPOFOL 100 ML IV SCH (04:00)
[2021-01-07] MEDS: ACCU-CHEK COMFORT CURVE STRIP VI SCH ×7 (04:00→23:23)
[2021-01-07] MEDS: InsuLIN REG 1unit/0.01ml Soln (100units/ml) SC SCH ×7 (04:00→23:23)
[2021-01-07] MEDS: MIDAZOLAM DRIP 50 mg/50mL 50 ML IV SCH (04:30)
[2021-01-07 04:34] LABS: Hematocrit 27.2 % (36.0-46.0); Hemoglobin 8.7 g/dL (12.2-16.2)
[2021-01-07] MEDS: NOREPINEPHRINE 8 MG/250ML KIT 250 ML IV SCH ×2 (07:30→20:09)
[2021-01-07] MEDS: PANTOPRAZOLE 40 MG TAB PO SCH ×2 (10:00→22:06)
[2021-01-07] MEDS: BENAZEPRIL HCL 10 MG TAB PO SCH (10:00)
[2021-01-07] MEDS: ATENOLOL 50 MG TAB PO SCH (10:00)
[2021-01-07] MEDS: amLODIPine BESYLATE 5 MG TAB PO SCH (10:00)
[2021-01-07] MEDS: ASPirin-EC 81 mg tab PO SCH (10:00)
[2021-01-07] MEDS: FUROSEMIDE 40 MG/4 ML VIAL IV SCH (10:16)
[2021-01-07] MEDS: CLOPIDOGREL BISULFATE 75 MG TAB PO SCH (10:19)
[2021-01-07] MEDS: ENOXAPARIN SOD 40 MG/0.4 ML SYRINGE SC SCH (10:19)
[2021-01-07] MEDS: SODIUM CHLOR 0.9% PF (SALINE LOCK) 10ML VIAL/SYR IV SCH ×2 (10:20→22:06)
[2021-01-07 10:33] LABS: BUN/Creatinine Ratio 15.5; Calcium 8.8 mg/dL (8.5-10.1); Potassium 4.3 mmol/L (3.5-5.1)
[2021-01-08] VITALS (80 sets, daily range): BP systolic 86–196; BP diastolic 39–77
[2021-01-08] MEDS: IPRATROPIUM BROM 0.5 MG/2.5ML INH SOL NEB SCH ×3 (00:18→11:03)
[2021-01-08] MEDS: ALBUTEROL SULF 2.5 MG/0.5ML(0.5%) NEB SOLN NEB SCH ×3 (00:18→11:04)
[2021-01-08] MEDS: fentaNYL Drip 2500mCg/250mlNS 250 ML IV SCH (02:45)
[2021-01-08] MEDS: PROPOFOL 100 ML IV SCH (04:00)
[2021-01-08] MEDS: ACCU-CHEK COMFORT CURVE STRIP VI SCH ×5 (04:20→20:00)
[2021-01-08] MEDS: InsuLIN REG 1unit/0.01ml Soln (100units/ml) SC SCH ×5 (04:22→20:00)
[2021-01-08] MEDS: MIDAZOLAM DRIP 50 mg/50mL 50 ML IV SCH (04:30)
[2021-01-08] MEDS: NOREPINEPHRINE 8 MG/250ML KIT 250 ML IV SCH ×2 (06:05→13:50)
[2021-01-08] MEDS: FUROSEMIDE 40 MG/4 ML VIAL IV SCH (10:00)
[2021-01-08] MEDS: BENAZEPRIL HCL 10 MG TAB PO SCH (10:00)
[2021-01-08] MEDS: ASPirin-EC 81 mg tab PO SCH (10:00)
[2021-01-08] MEDS: ATENOLOL 50 MG TAB PO SCH (10:00)
[2021-01-08] MEDS: PANTOPRAZOLE 40 MG TAB PO SCH (10:00)
[2021-01-08] MEDS: SODIUM CHLOR 0.9% PF (SALINE LOCK) 10ML VIAL/SYR IV SCH (10:00)
[2021-01-08] MEDS: ENOXAPARIN SOD 40 MG/0.4 ML SYRINGE SC SCH (10:00)
[2021-01-08] MEDS ORDERED: LORazepam 2MG/ML-1ML VIAL IV PRN (10:00)
[2021-01-08] MEDS: amLODIPine BESYLATE 5 MG TAB PO SCH (10:00)
[2021-01-08] MEDS ORDERED: MORPHINE SULFATE 4 MG/ML SYR/VIAL IV PRN (10:00)
[2021-01-08] MEDS: CLOPIDOGREL BISULFATE 75 MG TAB PO SCH (10:00)
== END 2021-01-08 23:56 ==
LOC: EDUNIT# 01:28 → EDBD 01:28 → ER 01:30 → TELE 06:49 → DOU IN ICU 01-06 06:10
PROVIDERS: ADMIT Internal Medicine; ATTEND Internal Medicine
PROC: 5A1955Z Respiratory Ventilation, Greater than 96 Consecutive Hours (ICD-10-PCS; principal; 2021-01-02)
PROC: 5A12012 Performance of Cardiac Output, Single, Manual (ICD-10-PCS; 2021-01-02)
PROC: 0BH17EZ Insertion of Endotracheal Airway into Trachea, Via Natural or Artificial Opening (ICD-10-PCS; 2021-01-02)
DX: I21.4 Non-ST elevation (NSTEMI) myocardial infarction (principal); J69.0 Pneumonitis due to inhalation of food and vomit; J96.01 Acute respiratory failure with hypoxia; G93.41 Metabolic encephalopathy; G93.6 Cerebral edema; R40.20 Unspecified coma; G93.1 Anoxic brain damage, not elsewhere classified; Z66 Do not resuscitate; I46.9 Cardiac arrest, cause unspecified; I25.10 Atherosclerotic heart disease of native coronary artery without angina pectoris; Z20.822 Contact with and (suspected) exposure to COVID-19; K21.9 Gastro-esophageal reflux disease without esophagitis; E78.5 Hyperlipidemia, unspecified; F41.9 Anxiety disorder, unspecified; I10 Essential (primary) hypertension; J43.9 Emphysema, unspecified; E11.65 Type 2 diabetes mellitus with hyperglycemia; G25.81 Restless legs syndrome; F12.10 Cannabis abuse, uncomplicated; D72.829 Elevated white blood cell count, unspecified; F19.10 Other psychoactive substance abuse, uncomplicated; Z95.5 Presence of coronary angioplasty implant and graft; Z90.49 Acquired absence of other specified parts of digestive tract; Z90.710 Acquired absence of both cervix and uterus; Z82.49 Family history of ischemic heart disease and other diseases of the circulatory system; Z80.0 Family history of malignant neoplasm of digestive organs
CPT/HCPCS: 36415; 36569; 36600; 70450; 71045; 71275; 80048; 80053; 80202; 81001; 82805; 82962; 83605; 83735; 83880; 84484; 85007; 85014; 85018; 85025; 85027; 85379; 85610; 85730; 86850; 86900; 86901; 87040; 87070; 87081; 87086; 87205; 87426; 93005; 93306; 94002; 94003; 94640; 95819; 96365; 96366; 96368; 96375; 99291; G0378; J1815; J2250; J2543; J2704; J3480; J3490